=== PATIENT | male | born 1955 | race African-American/Black ===

== ENCOUNTER 2019-03-31 09:46 | Outpatient (CLI) | payer MEDICARE, SELFPAY ==
[2019-04-02 21:23] LABS: PSA, Free 0.06 ng/mL; PSA, Total 0.4 ng/mL (<=4.0)
== END 2019-03-31 09:47 | disposition home or self-care (01) ==
LOC: ANHLAB 09:47
PROVIDERS: Radiology Radiation Oncology; Visit Provider Internal Medicine Hematology & Oncology
DX: C61 Malignant neoplasm of prostate (principal)
CPT/HCPCS: 36415; 84153; 84154

== ENCOUNTER 2019-10-22 11:38 | Outpatient (CLI) | payer MEDICARE, SELFPAY ==
[2019-10-22 12:10] LABS: Alanine Aminotransferase 14 U/L (4-50); Albumin Level 4.3 g/dL (3.5-5.1); Alkaline Phosphatase 70 U/L (38-126); Anion Gap 10.3 mmol/L (7-16); Aspartate Amino Transferase 27 U/L (17-59); Bilirubin,Total 0.6 mg/dL (0.2-1.3); Blood Urea Nitrogen 16 mg/dL (9-20); Calcium 9.3 mg/dL (8.4-10.2); Carbon Dioxide 29 mmol/L (22-30); Chloride 102 mmol/L (98-107); Cholesterol 210 mg/dL (0-200); Estimated Glomerular Filt Rate > 60; Glucose 94 mg/dL (75-110); HDL Direct 50 mg/dL; Potassium 4.3 mmol/L (3.4-5.0); Sodium 137 mmol/L (137-145); Triglycerides 101 mg/dL (<150)
[2019-10-22 12:21] LABS: LDL Cholesterol Direct 124 mg/dL
[2019-10-22 13:36] LABS: Vitamin D 25 Hydroxy 38.3 ng/mL
== END 2019-10-22 11:39 | disposition home or self-care (01) ==
PROVIDERS: PCP Emergency Medicine; Visit Provider Emergency Medicine
DX: E78.2 Mixed hyperlipidemia (principal); E55.9 Vitamin D deficiency, unspecified
CPT/HCPCS: 36415; 80053; 80061; 82306

== ENCOUNTER 2020-04-19 09:36 | Outpatient (CLI) | payer MEDICARE, SELFPAY ==
[2020-04-19 10:41] LABS: Alanine Aminotransferase 18 U/L (4-50); Albumin Level 4.3 g/dL (3.5-5.1); Alkaline Phosphatase 63 U/L (38-126); Anion Gap 5 mmol/L (8-16); Aspartate Amino Transferase 31 U/L (17-59); Bilirubin,Total 0.5 mg/dL (0.2-1.3); Blood Urea Nitrogen 19 mg/dL (9-20); Calcium 9.4 mg/dL (8.4-10.2); Carbon Dioxide 28 mmol/L (22-30); Chloride 105 mmol/L (98-107); Cholesterol 242 mg/dL (0-200); Estimated Glomerular Filt Rate > 60; Glucose 90 mg/dL (75-110); HDL Direct 49 mg/dL; Potassium 4.4 mmol/L (3.4-5.0); Sodium 138 mmol/L (137-145); Triglycerides 102 mg/dL (<150)
[2020-04-19 10:51] LABS: LDL Cholesterol Direct 151 mg/dL
== END 2020-04-19 09:37 | disposition home or self-care (01) ==
PROVIDERS: PCP Emergency Medicine; Visit Provider Emergency Medicine
DX: E78.5 Hyperlipidemia, unspecified (principal)
CPT/HCPCS: 36415; 80053; 80061

== ENCOUNTER 2020-06-23 15:11 | Outpatient (CLI) | payer MEDICARE, SELFPAY ==
--- NOTE | ~2020-06-23 | US_ITS ---
EXAMINATION: US carotid duplex BI DATE: 06/23/2020 16:18 INDICATION: Left carotid artery stenosis and occlusion. TECHNIQUE: Grayscale, color Doppler, and pulsed Doppler images of the cervical carotid arteries were obtained. The degree of vessel stenosis is placed in one of the following categories: normal, <50%, 5 0-69%, >=70% but less than near-occlusion, near-occlusion, or total occlusion. Note that percent sten osis relative to normal distal artery lumen diameter is indirectly measured from velocity measurement s as described by Wally, et al. Radiology 2003; [id number]. COMPARISON: 01/04/2009 FINDINGS: RIGHT: The right common carotid artery (CCA) peak systolic velocity (PSV) is 95 cm/s with high resistance wa veform. The right internal carotid artery is occluded with no discernible vascular flow on color Dopp ler.. The external carotid artery (ECA) PSV is 53 cm/s. There is antegrade flow in the right vertebra l artery. LEFT: The left CCA PSV is 107 cm/s. The left ICA PSV is 59 cm/s. The left ICA EDV is 27 cm/s. The left ICA/ CCA PSV ratio is 0.6. Grayscale and color Doppler images yield an estimate of <50% diameter reduction from plaque in the ICA. The ECA PSV is 85 cm/s. There is antegrade flow in the left vertebral artery . IMPRESSION: 1. Complete occlusion of the right internal carotid artery. 2. <50% stenosis from minimal plaque in the left internal carotid artery. Reviewed, dictated and finalized at location B.
== END 2020-06-23 15:12 | disposition home or self-care (01) ==
LOC: ANHIMG 15:15
PROVIDERS: PCP Emergency Medicine; Visit Provider Emergency Medicine
DX: I65.23 Occlusion and stenosis of bilateral carotid arteries (principal)
CPT/HCPCS: 93880

== ENCOUNTER 2020-11-29 08:12 | Outpatient (CLI) | payer MEDICARE, SELFPAY ==
[2020-11-29 09:02] LABS: Alanine Aminotransferase 18 U/L (4-50); Albumin Level 4.1 g/dL (3.5-5.1); Alkaline Phosphatase 80 U/L (38-126); Anion Gap 9 mmol/L (8-16); Aspartate Amino Transferase 27 U/L (17-59); Bilirubin,Total 0.4 mg/dL (0.2-1.3); Blood Urea Nitrogen 12 mg/dL (9-20); Calcium 9.3 mg/dL (8.4-10.2); Carbon Dioxide 24 mmol/L (22-30); Chloride 106 mmol/L (98-107); Cholesterol 202 mg/dL (0-200); Estimated Glomerular Filt Rate > 60; Glucose 99 mg/dL (65-110); HDL Direct 49 mg/dL; Potassium 4.1 mmol/L (3.4-5.0); Sodium 139 mmol/L (137-145); Triglycerides 92 mg/dL (<150)
[2020-11-29 09:13] LABS: LDL Cholesterol Direct 113 mg/dL
== END 2020-11-29 08:13 | disposition home or self-care (01) ==
LOC: ANHLAB 08:16
PROVIDERS: PCP Emergency Medicine; Visit Provider Emergency Medicine
DX: I10 Essential (primary) hypertension (principal); E78.5 Hyperlipidemia, unspecified
CPT/HCPCS: 36415; 80053; 80061

== ENCOUNTER 2021-06-06 09:37 | Outpatient (CLI) | payer MEDICARE, SELFPAY ==
[2021-06-06 10:10] LABS: Alanine Aminotransferase 19 U/L (4-50); Albumin Level 4.4 g/dL (3.5-5.1); Alkaline Phosphatase 70 U/L (38-126); Anion Gap 6 mmol/L (8-16); Aspartate Amino Transferase 34 U/L (17-59); Bilirubin,Total 0.5 mg/dL (0.2-1.3); Blood Urea Nitrogen 16 mg/dL (9-20); Calcium 9.2 mg/dL (8.4-10.2); Carbon Dioxide 24 mmol/L (22-30); Chloride 106 mmol/L (98-107); Cholesterol 216 mg/dL (0-200); Estimated Glomerular Filt Rate > 60; Glucose 92 mg/dL (65-110); HDL Direct 43 mg/dL; Potassium 4.5 mmol/L (3.4-5.0); Sodium 136 mmol/L (137-145); Triglycerides 111 mg/dL (<150)
[2021-06-06 10:21] LABS: LDL Cholesterol Direct 120 mg/dL
== END 2021-06-06 09:38 | disposition home or self-care (01) ==
PROVIDERS: PCP Emergency Medicine; Visit Provider Emergency Medicine
DX: E78.5 Hyperlipidemia, unspecified (principal)
CPT/HCPCS: 36415; 80053; 80061

== ENCOUNTER 2021-12-24 15:01 | Emergency (ER) | payer MEDICARE, SELFPAY ==
--- NOTE | ~2021-12-24 | CT_ITS ---
EXAMINATION: CT lumbar spine wo con DATE: 12/24/2021 16:12 INDICATION: fall . TECHNIQUE: Computed tomography (CT) of the lumbar spine was performed without intravenous contrast. A utomated exposure control and iterative reconstruction technique were employed. The dose-length produ ct was 1029.90 mGy-cm. COMPARISON: 11/06/2017. FINDINGS: 5 nonrib-bearing lumbar-type vertebral bodies. Pedicles intact. 4 mm anterolisthesis at L5- S1, stable. Bilateral L5 pars defects. Moderate anterior wedge deformity at L2 involving the superior endplate, without definite extension to the posterior cortex. Multilevel degenerative disc disease. 7 mm soft tissue density posterior to the L5 vertebral body which may represent a disc extrusion. Dif fuse fatty density material in the epidural space. Multilevel facet arthropathy. Severe bilateral gio ral foraminal narrowing at L5-S1. No severe central canal narrowing IMPRESSION: Moderate anterior wedge compression deformity at L2, correlate with pain/tenderness. Presumed 7 [address] sc extrusion at L5. Bilateral L5 pars defects, with grade 1 anterolisthesis, severe degenerative disc disease, and severe bilateral neural foraminal narrowing at L5-S1. Epidural lipomatosis. Reviewed, dictated and finalized at location K. IMPRESSION: Moderate anterior wedge compression deformity at L2, correlate with pain/tender ness. Presumed 7 mm disc extrusion at L5. Bilateral L5 pars defects, with grade 1 anterolisthesis, severe degenerative disc disease, and severe bilateral neur al foraminal narrowing at L5-S1. Epidural lipomatosis.
[2021-12-24 15:03] VITALS: BP 142/76; PULSE 97; RESP 22; TEMP 36.4; O2SAT 97
[2021-12-24] MEDS: diazePAM INJ (*CRX) 10 MG/2 ML SYRINGE 5 MG IV PUSH (16:42)
--- NOTE | 2021-12-24 17:48 | ED.GENADULT ---
HPI - General Adult General Chief complaint: Back Pain/Injury Stated complaint: back pain Source: RN notes reviewed History of Present Illness HPI narrative: Patient presents emergency department from home via EMS for back pain. Patient has been having back pain for the past 2 weeks since he fell states he is working on a lawnmower when he slipped and fell landing back on his back he states since that time he had pain in the bilateral lower back states his back has been spasming and locking up on him since that time states he has been taking ibuprofen at home with last ibuprofen approximately 2 hours ago he denies any fevers or chills abdominal pain numbness or weakness of the extremities bowel or bladder incontinence or any other symptoms of concern he did not strike his head and had no loss of consciousness Related Data Home Medications Medication Instructions Recorded Confirmed aspirin 81 mg tablet,delayed 81 mg PO DAILY 04/23/19 06/15/21 release magnesium oxide 400 mg PO DAILY 12/17/19 06/15/21 Allergies Allergy/AdvReac Type Severity Reaction Status Date / Time No Known Allergies Allergy Verified 06/15/21 15:04 Review of Systems Review of Systems: Gen.: Denies fevers or chills ENT: Denies congestion Respiratory: Denies shortness of breath or cough CV: Denies chest pain GI: Denies abdominal pain nausea, emesis or diarrhea denies incontinence Musculoskeletal: see HPI Neuro: Denies numbness, tingling, weakness or focal weakness Skin: Denies rash Except as documented, all other systems reviewed and negative [facility] Past Medical History Medical History (Updated 12/24/21 @ 18:11 by Jeremy Ch DO) H/O: CVA (cerebrovascular accident) HTN (hypertension) Hyperlipidemia Prostate cancer Family History Family History Father Family history of cardiovascular disease Acute myocardial infarction Family history of emphysema Sibling Acute myocardial infarction Mother Family history of lung cancer Social History Social History Smoking status: Former smoker Alcohol intake: never Exam Narrative: APPEARANCE: No acute distress, nontoxic, resting in bed EYES: EOMI HEENT: Normocephalic, atraumatic, OMM RESPIRATORY: No respiratory distress Clear to auscultation bilaterally with no rhonchi wheezing or rales. CARDIOVASCULAR: Regular rate and rhythm without murmurs rubs or gallops. ABDOMINAL: Soft, nontender, nondistended, no rebound or guarding Back: No midline thoracic or lumbar tenderness palpation tender palpation bilateral paravertebral muscles L2-5 MUSCULOSKELETAl: Moves all extremities. No clubbing, cyanosis or edema. Muscle strength 5 out of 5 in the bilateral lower extremities NEURO: Awake and alert. Following commands, speech normal, no focal deficits SKIN:: Warm, dry. No rashes lesions or abrasions PSYCHIATRIC: Normal affect/mood, Course Course Emergency Course: Discussed with Dr. Allen for neurosurgery agrees with plan for discharge and follow-up as an outpatient Discussed with patient results of workup and diagnosis. Discussed need for follow-up with primary care, proper use of medication, and reasons to return to the emergency department. Patient understands and agrees to current treatment plan Vital Signs Vital signs: Vital Signs Temperature 97.6 F 12/24/21 15:03 Pulse Rate 97 12/24/21 15:03 Respiratory Rate 22 H 12/24/21 15:03 Blood Pressure 142/76 H 12/24/21 15:03 Pulse Oximetry 97 12/24/21 15:03 Oxygen Delivery Room Air 12/24/21 15:03 Temperature 97.6 F 12/24/21 15:03 Pulse Rate 97 12/24/21 15:03 Respiratory Rate 22 H 12/24/21 15:03 Blood Pressure 142/76 H 12/24/21 15:03 Pulse Oximetry 97 12/24/21 15:03 Oxygen Delivery Room Air 12/24/21 15:03 Medical Decision Making MDM Narrative Medical
== END 2021-12-24 18:54 | disposition home or self-care (01) ==
PROVIDERS: Emergency Provider Emergency Medicine; PCP Emergency Medicine
DX: S32.020A Wedge compression fracture of second lumbar vertebra, initial encounter for closed fracture (principal); I10 Essential (primary) hypertension; E78.5 Hyperlipidemia, unspecified; Z85.46 Personal history of malignant neoplasm of prostate; Z86.73 Personal history of transient ischemic attack (TIA), and cerebral infarction without residual deficits; Z87.891 Personal history of nicotine dependence; W01.0XXA Fall on same level from slipping, tripping and stumbling without subsequent striking against object, initial encounter
CPT/HCPCS: 72131; 96365; 96375; 99284; J0131; J3360

== ENCOUNTER 2021-12-26 11:44 | Outpatient (CLI) | payer MEDICARE, SELFPAY ==
[2021-12-26 12:15] LABS: Alanine Aminotransferase 24 U/L (6-50); Albumin Level 4.4 g/dL (3.5-5.1); Alkaline Phosphatase 106 U/L (38-126); Anion Gap 9 mmol/L (8-16); Aspartate Amino Transferase 45 U/L (17-59); Bilirubin,Total 0.7 mg/dL (0.2-1.3); Blood Urea Nitrogen 17 mg/dL (9-20); Calcium 9.8 mg/dL (8.4-10.2); Carbon Dioxide 24 mmol/L (22-30); Chloride 104 mmol/L (98-107); Cholesterol 209 mg/dL (0-200); Estimated Glomerular Filt Rate > 60; Glucose 90 mg/dL (65-110); HDL Direct 48 mg/dL; Potassium 4.1 mmol/L (3.4-5.0); Sodium 137 mmol/L (137-145); Triglycerides 84 mg/dL (<150)
[2021-12-26 12:26] LABS: LDL Cholesterol Direct 119 mg/dL
== END 2021-12-26 11:45 | disposition home or self-care (01) ==
PROVIDERS: PCP Emergency Medicine; Visit Provider Emergency Medicine
DX: E78.5 Hyperlipidemia, unspecified (principal); I10 Essential (primary) hypertension
CPT/HCPCS: 36415; 80053; 80061

== ENCOUNTER 2021-12-27 06:30 | Observation (INO) | payer MEDICARE, SELFPAY ==
[2021-12-27] VITALS (16 sets, daily range): BP systolic 117–155; BP diastolic 64–92; PULSE 69–95; RESP 15–20; TEMP 35.6–36.7; O2SAT 95–100; BMI 28.6
--- NOTE | ~2021-12-27 | CT_ITS ---
EXAMINATION: CT cervical spine wo con DATE: 12/27/2021 08:29 INDICATION: Neck injury. TECHNIQUE: Computed tomography (CT) of the cervical spine was performed without intravenous contrast. Automated exposure control and iterative reconstruction technique were employed. The dose-length pro duct was 436.90 mGy-cm. COMPARISON: None FINDINGS: There is mild scarring at the lung apices. There is kyphosis of cervical spine. There is 2 mm anterolisthesis of C7 on T1. There is 18 degrees dextroscoliosis of cervical spine. Vertebral body heights are normal. There is moderately decreased disc height at C3-C4 and C4-C5, severely decreased disc height at C5-C6 and C6-C7, and mildly decreased disc height at C7-T1. The following disc levels are specifically discussed: C2-C3: There is mild bilateral uncovertebral joint osteoarthritis. There is severe bilateral facet efren int osteoarthritis. There is mild bilateral neural foraminal stenosis. There is mild central canal st enosis. C3-C4: There is mild right and severe left uncovertebral joint osteoarthritis. There is moderate righ t and severe left facet joint osteoarthritis. There is mild right and moderate left neural foraminal stenosis. There is mild central canal stenosis. C4-C5: There is severe bilateral uncovertebral joint osteoarthritis. There is mild right and severe l eft facet joint osteoarthritis. There is mild right and moderate left neural foraminal stenosis. Ther e is mild central canal stenosis. C5-C6: There is severe right and moderate left uncovertebral joint osteoarthritis. There is mild righ t and severe left facet joint osteoarthritis. There is mild bilateral neural foraminal stenosis. Ther e is mild central canal stenosis. C6-C7: There is severe bilateral uncovertebral joint osteoarthritis. There is severe bilateral facet joint osteoarthritis. There is mild bilateral neural foraminal stenosis. There is mild central canal stenosis. C7-T1: There is no uncovertebral joint osteoarthritis. There is severe bilateral facet joint osteoart hritis. There is mild bilateral neural foraminal stenosis. There is no central canal stenosis. IMPRESSION: 1. No fracture. 2. Severe cervical spondylosis. 3. Cervical dextroscoliosis. Reviewed, dictated and finalized at location A.
--- NOTE | ~2021-12-27 | CT_ITS ---
EXAMINATION: CT brain wo con DATE: 12/27/2021 08:29 INDICATION: Multiple falls. Left arm weakness. TECHNIQUE: Computed tomography (CT) of the head was performed without intravenous contrast. Sagittal and coronal reconstructions were performed. The mA was adjusted according to patient size. Iterative reconstruction technique was employed. The dose-length product was 605.33 mGy-cm. COMPARISON: head CT dated 11/05/2017 FINDINGS: No fracture. Unchanged large region of encephalomalacia involving the right middle cerebral artery va scular lesion of the right frontal, parietal and temporal lobes and portions of the right basal gangl ia and thalamus consistent with chronic infarct. No acute intracranial hemorrhage, acute infarction o r abnormal extra axial fluid collection. There is mild scattered white matter hypoattenuation consist ent with chronic small vessel ischemic disease. Mild ex vacuo dilation of the right lateral ventricl e. Ventricles are otherwise normal symmetric with normal variant cavum septum pellucidum et vergae. N o mass/mass effect. The orbits, paranasal sinuses and mastoid air cells are normal. Intracranial calc ified cerebral atherosclerosis is noted. IMPRESSION: 1. No acute intracranial process. 2. Chronic large infarct involving the right middle cerebral artery vascular distribution. 3. Additional mild scattered white matter hypoattenuation consistent with chronic small vessel ischem ic disease. Reviewed, dictated and finalized at location B. IMPRESSION: 1. No acute intracranial process. 2. Chronic large infarct involving the right middle cerebral artery vascular di stribution. 3. Additional mild scattered white matter hypoattenuation consistent with chron ic small vessel ischemic disease.
--- NOTE | ~2021-12-27 | CT_ITS ---
EXAMINATION: CT thoracic lumbar wo con DATE: 12/27/2021 08:30 INDICATION: Mid to low back pain post multiple falls. Recent compression fracture. TECHNIQUE: Computed tomography (CT) of the thoracic and lumbar spine was performed without intravenou s contrast. CT reconstructions of the thoracic and lumbar spine were obtained in the axial, coronal, and sagittal planes. Automated exposure control and iterative reconstruction technique were employed. The dose-length product was 2011.48 mGy-cm. COMPARISON: 12/24/2021 FINDINGS: Thoracic spine: Minimal upper thoracic levocurvature. Sagittal alignment is normal. Thoracic vertebral body heights a re normal. Mild disc height loss at multiple levels throughout the thoracic spine. No central canal s tenosis. Severe facet osteoarthritis on the right at C7-T1 through T3-T4 and on the left at C7-T1 thr ough T2-T3. Mild to moderate facet osteoarthritis throughout the more caudal thoracic spine. There is mild neural foraminal stenosis at multiple levels on both the left and right most prominent in the u pper thoracic spine. Paravertebral soft tissues are unremarkable. Respiratory motion and mild depende nt predominant atelectasis in the bilateral lungs. Lumbar spine: Chronic L5 spondylolysis with bilateral pars intra-articular is defects and unchanged 4 mm anterolist hesis L5 on S1. Alignment is otherwise normal. No interval change in a relatively recent-appearing L2 compression fracture with one third central vertebral body height loss. Remaining vertebral body hei ghts are normal. There is severe blunting of the central L1-L2 disc space. Mild disc height loss at L 3-L4 and L4-L5 and moderate disc height loss at L5-S1. Likely disc extrusion at L1-L2 and disc bulges at L2-L3 through L5-S1 which along with epidural lipomatosis in the mid to lower lumbar spine contri buting to multilevel mild central canal stenosis. Multilevel bilateral mild to moderate lumbar facet osteoarthritis most prominent at L1-L2. Severe right-sided and moderate to severe left-sided neural f oraminal stenosis at L5-S1. Moderate left-sided and mild to moderate right-sided neural foraminal jesus nosis at L4-L5, bilaterally at L3-L4 and on the right at L1-L2 and mild at the remaining lumbar neura l foramina. Calcified appendicoliths within the otherwise normal appendix with no periappendiceal inf lammatory stranding to suggest acute appendicitis. Surgical clip in the pelvis. IMPRESSION: 1. No interval change in a relatively recent-appearing L2 compression fracture with one third central vertebral body height loss. No acute osseous or LT. 2. Mild to moderate thoracic and lumbar spondylosis. 3. Chronic L5 spondylolysis with bilateral pars interarticularis defects and 4 mm anterolisthesis on S1. Reviewed, dictated and finalized at location B.
--- NOTE | 2021-12-27 06:35 | ECG_ITS ---
Measurements Intervals [place] Rate: 71 P: 54 SD: 141 QRS: 46 QRSD: 89 T: 36 QT: 368 QTc: 401 Interpretive Statements SINUS RHYTHM ARTIFACT IS PRESENT NO PREVIOUS ECG AVAILABLE FOR COMPARISON Electronically Signed On 12-29-2021 14:14:07 CDT by Edwin Palencia M.D.
--- NOTE | 2021-12-27 07:07 | ED.FALL ---
HPI - Fall General Chief Complaint: Fall Stated Complaint: GLF last noc, lower back Time Seen by Provider: 12/27/21 07:02 History of Present Illness HPI Narrative: Patient is a 66-year-old male with a history of strokes, hypertension, hyperlipidemia, recent lumbar compression fracture presenting after multiple falls. Patient had several falls approximately 4 days ago and was seen at this facility. He was diagnosed with a compression fracture and was able to go home with outpatient neurosurgical follow-up. Unfortunately, since that time he has had numerous falls. Patient sister reports that he had several falls yesterday during the day. She and her were able to help him up but then the patient had a fall around 7 PM and was unable to get to the phone until 4 AM to call her. Patient states that this last fall was due to slipping on water in the bathroom floor. Currently, the patient states that his back pain is 7 out of 10. She denies focal weakness or numbness. Denies saddle anesthesia or bladder or bowel incontinence. He denies striking his head or losing consciousness. No headache, vision changes, chest pain, lightheadedness, shortness of breath, abdominal pain, nausea or vomiting, diarrhea, leg swelling. Related Data Home Medications Medication Instructions Recorded Confirmed aspirin 81 mg tablet,delayed 81 mg PO DAILY 04/23/19 12/27/21 release magnesium oxide 400 mg PO DAILY 12/17/19 12/27/21 rosuvastatin 10 mg tablet 10 mg PO HS 12/27/21 12/27/21 travoprost 0.004 % eye drops 1 drp EACH EYE HS 12/27/21 12/27/21 Allergies Allergy/AdvReac Type Severity Reaction Status Date / Time No Known Allergies Allergy Verified 12/27/21 12:43 Review of Systems Review of Systems: All systems reviewed & are unremarkable except as noted in HPI and below PMFSH Past Medical History Medical History (Updated 12/28/21 @ 18:54 by Francesca Madera MD) Anxiety and depression Glaucoma H/O: CVA (cerebrovascular accident) HTN (hypertension) Hyperlipidemia Prostate cancer With radiation treatment Seizure disorder Surgical History Surgical History (Updated 12/27/21 @ 14:57 by Louisa Rahman NP) History of hand surgery History of repair of rotator cuff History of ventral hernia repair Family History Family History Father Family history of cardiovascular disease Acute myocardial infarction Family history of emphysema Sibling Acute myocardial infarction Mother Family history of lung cancer Social History Social History (Updated 12/27/21 @ 14:59 by Louisa Rahman NP) Social History: The patient had been in the but retired from highway construction. He is single and does not have any children. His 4 sisters are his power senior trial attorney. He denies any alcohol marijuana illicit drugs. Code status full code. Smoking status: Former smoker Alcohol intake: current Drinks per week: 6 Substance use: never Occupation/Education: retired Spiritual care concerns: No Exam Narrative: GENERAL: Well-appearing, well-nourished, and in no acute distress. HEAD: Normocephalic, atraumatic. EYES: PERRLA and EOMI. ENT: Nares clear, no rhinorrhea or epistaxis. Mucous membranes moist. NECK: Supple. CHEST: Clear to auscultation. No respiratory distress. HEART: Regular rate and rhythm. No murmur heard. Normal peripheral pulses. ABDOMEN: Soft, nontender, nondistended, normal active bowel sounds. EXTREMITIES: Normal range of motion. No edema. SKIN: Warm, dry, no rash. NEURO: No focal deficits. Strength 4+/5 bilateral lower extremities. Alert and oriented x3. PSYCH: Normal mood and affect. Course Course Emergency Course: Patient is a 66-year-old male presenting after multiple falls. Vitals within normal limits. Patient is nontoxic and in no acute distress. Exam is remarkable for the above. Concern for nu
[2021-12-27 07:42] LABS: Add Urine Microscopic? YES; Appearance Urine Clear (Clear); Bilirubin Urine Negative (Negative); Blood Urine 2+ (Negative); Color Urine Straw (Yellow); Glucose Urine UA Negative (Negative); Ketones Urine Negative (Negative); Leukocyte Esterase Ur Negative LEU/UL (Negative); Mucus Urine Rare /lpf; Nitrate Urine Negative (Negative); Protein Urine 2+ mg/dL (Negative); RBC Urine 0-2 /hpf (0-2); Specific Grav Ur 1.014 (1.001-1.035); Squamous Epithelial Cell Urine Rare /hpf (Few); Urobilinogen Urine Negative mg/dL (<2.0); WBC Urine 0-3 /hpf
[2021-12-27 07:46] LABS: Basophils Percent Auto 0.1 % (0.2-1.2); Eosinophils Absolute Auto 0.1 K/mm3 (0-0.3); Eosinophils Percent Auto 1.3 % (0-4.4); Hematocrit 38.6 % (42.0-52.0); Hemoglobin 12.6 g/dL (14.0-18.0); Immature Granulocyte Absolute 0.04 K/mm3 (0.00-0.031); Immature Granulocyte Percent A 0.6 % (0-0.5); Lymphocytes Absolute Auto 1.69 K/mm3 (0.9-3.2); Lymphocytes Percent Auto 25.2 % (18.3-44.2); Mean Corpuscular HGB Conc 32.6 g/dl (32-36); Mean Corpuscular Hemoglobin 30.8 pg (26-34); Mean Corpuscular Volume 94.4 fl (80-100); Mean Platelet Volume 9.7 fl (7.4-10.4); Monocytes Absolute Auto 0.8 K/mm3 (0.1-0.6); Monocytes Percent Auto 12.1 % (2.6-8.5); Neutrophils Absolute Auto 4.1 K/mm3 (1.3-6.7); Neutrophils Percent Auto 60.7 % (45.5-73.1); Platelet Count Result 215 k/mm3 (150-375); Red Blood Count 4.09 M/mm3 (4.6-6.20); White Blood Count 6.7 K/mm3 (4.5-10.0)
[2021-12-27] MEDS: KETOROLAC 15 MG/ML VIAL (*BKC) IV PUSH (07:50)
[2021-12-27] MEDS: MORPHINE SULFATE (*CRX) 4 MG/ML INJ IV PUSH (07:52)
[2021-12-27 07:53] LABS: Alanine Aminotransferase 24 U/L (6-50); Albumin Level 4.3 g/dL (3.5-5.1); Alkaline Phosphatase 95 U/L (38-126); Anion Gap 10 mmol/L (8-16); Aspartate Amino Transferase 45 U/L (17-59); Bilirubin,Total 0.5 mg/dL (0.2-1.3); Blood Urea Nitrogen 21 mg/dL (9-20); Calcium 9.6 mg/dL (8.4-10.2); Carbon Dioxide 25 mmol/L (22-30); Chloride 107 mmol/L (98-107); Creatine Kinase 851 U/L (55-170); Estimated CRCL calculation 47 ml/min; Estimated Glomerular Filt Rate > 60; Glucose 101 mg/dL (65-110); Sodium 142 mmol/L (137-145)
[2021-12-27] MEDS: SODIUM CHLORIDE 0.9% IV 1,000 ML 999 ML IV CONT (09:22)
[2021-12-27 11:24] LABS: SARS-CoV-2 RNA PCR Negative
--- NOTE | 2021-12-27 12:10 | ADMGEN ---
This patient, Roman La, was admitted to [facility] Surg Room 316-01. Patient/family oriented to hospital policies and general routines including ID bracelet, bed and alarms, visiting hours, pain management, procedures, bathroom and other care routines, personal items, smoking policy, room service/diet, and visiting hours. Information on how to activate the Rapid Response Team has been discussed. Patient/Family are encouraged to report perceived risks to care and to ask questions if they do not understand what they are told or what they should do.
[2021-12-27] MEDS: SODIUM CHLORIDE 0.9% IV 1,000 ML 125 ML IV CONT ×2 (12:18→20:12)
--- NOTE | 2021-12-27 14:43 | PM.IMHP ---
H&P: HPI History of Present Illness Date/Time: 12/27/21 14:43 Chief Complaint: Fall Narrative: This is a 66-year-old male patient who has been diagnosed with compression fracture and was able to go home and follow-up with outpatient neuro surgery. Unfortunately the patient continues to keep falling. The patient's sister reports that the patient fallen several times yesterday during the day. She and her were able to help him on up but then the patient fell around 7 p.m. and was unable to get the phone until 4:00 a.m.. The patient laid on the floor for that time. He denies any focal weakness or numbness. He denies any bowel or bladder incontinence. He denies striking his head or losing consciousness. The patient states that by lifting his head and sitting up and elicits pain in makes it worse. His no headache or visual changes. No lightheadedness no fever no chills no shortness of breath no abdominal pain no nausea vomiting diarrhea or leg swelling. His H&H is 12.6 and 38.6. Creatinine is elevated to 1.4 and BUN 21. Last known labs were normal. Patient was found to be negative for COVID. Thoracic lumbar spine CT was read as the following. 1.No interval change in a relatively recent-appearing L2 compression fracture with one third central vertebral body height loss. No acute osseous or LT. 2. Mild to moderate thoracic and lumbar spondylosis. 3. Chronic L5 spondylolysis with bilateral pars interarticularis defects and 4 mm anterolisthesis on S1. Cervical spine CT was read as no fracture. Severe cervical spondylosis. Cervical dextroscoliosis. The patient was given IV fluids, Toradol, and morphine in the emergency room. The patient is being admitted to observation status on the date of service of 12/27/2021. Review of Systems Review of Systems: See HPI All systems reviewed & are unremarkable except as noted in HPI and below Constitutional: Constitutional: Reports as per HPI and Reports no additional constitutional complaints Eyes: Eyes: Reports as per HPI and Reports no additional eye complaints ENT: Reports system reviewed and no additional complaints, except as documented and Reports Normal hearing present Cardiovascular: Cardiovascular: Reports no additional cardiovascular complaints Respiratory: Respiratory: Reports no additional respiratory complaints and Reports no additional respiratory complaints Gastrointestinal: Gastrointestinal: Reports as per HPI and Reports no additional gastrointestinal complaints Musculoskeletal: Musculoskeletal: Reports no additional musculoskeletal complaints Integumentary/Breasts: Skin/Breast: Reports system reviewed and no additional complaints, except as docu and Reports as per HPI Neurologic: Reports system reviewed and no additional complaints, except as documented, Reports as per HPI and Reports Normal hearing present Psychiatric: Psychiatric: Reports no additional psychiatric complaints and Reports as per HPI Endocrine: Endocrine: Reports no additional endocrine complaints Hematologic/Lymphatic: Hematologic/Lymphatic: Reports no additional hematologic/lymphatic complaints Allergic/Immunologic: Allergic/Immunologic: Reports no additional allergic/immunologic complaints [facility] Past Medical History Medical History (Updated 12/27/21 @ 15:08 by Louisa Rahman NP) Anxiety and depression Glaucoma H/O: CVA (cerebrovascular accident) HTN (hypertension) Hyperlipidemia Prostate cancer With radiation treatment Seizure disorder Surgical History Surgical History (Updated 12/27/21 @ 14:57 by Louisa Rahman NP) History of hand surgery History of repair of rotator cuff History of ventral hernia repair Family History Family History Father Family history of cardiovascular disease Acute myocardial infarction Family history of emphysema Sibling Acute myocardial infarction Mother
[2021-12-27] MEDS: levETIRAcetam 500 MG TABLET PO (18:01)
[2021-12-27] MEDS: ROSUVASTATIN 10 MG TABLET PO (20:07)
[2021-12-27] MEDS: LATANOPROST 0.005% OP SOLN 2.5 ML BTL 1 DROP EACH EYE (20:08)
[2021-12-28] MEDS: SODIUM CHLORIDE 0.9% IV 1,000 ML 125 ML IV CONT ×3 (04:51→21:52)
[2021-12-28 06:00] VITALS: BP 105/59; PULSE 82; RESP 16; TEMP 36.7; O2SAT 99
[2021-12-28 06:24] LABS: Basophils Percent Auto 0.2 % (0.2-1.2); Eosinophils Absolute Auto 0.1 K/mm3 (0-0.3); Eosinophils Percent Auto 1.9 % (0-4.4); Hematocrit 34.3 % (42.0-52.0); Hemoglobin 11.1 g/dL (14.0-18.0); Immature Granulocyte Absolute 0.03 K/mm3 (0.00-0.031); Immature Granulocyte Percent A 0.5 % (0-0.5); Lymphocytes Absolute Auto 2.43 K/mm3 (0.9-3.2); Lymphocytes Percent Auto 41.5 % (18.3-44.2); Mean Corpuscular HGB Conc 32.4 g/dl (32-36); Mean Corpuscular Hemoglobin 31.1 pg (26-34); Mean Corpuscular Volume 96.1 fl (80-100); Mean Platelet Volume 9.7 fl (7.4-10.4); Monocytes Absolute Auto 0.7 K/mm3 (0.1-0.6); Monocytes Percent Auto 11.8 % (2.6-8.5); Neutrophils Absolute Auto 2.6 K/mm3 (1.3-6.7); Neutrophils Percent Auto 44.1 % (45.5-73.1); Platelet Count Result 203 k/mm3 (150-375); Red Blood Count 3.57 M/mm3 (4.6-6.20); Red Cell Distribution Width 14.1 % (11.5-14.5); White Blood Count 5.9 K/mm3 (4.5-10.0)
[2021-12-28 06:53] LABS: Alanine Aminotransferase 20 U/L (6-50); Albumin Level 3.6 g/dL (3.5-5.1); Alkaline Phosphatase 76 U/L (38-126); Anion Gap 12 mmol/L (8-16); Aspartate Amino Transferase 30 U/L (17-59); Bilirubin,Total 0.5 mg/dL (0.2-1.3); Blood Urea Nitrogen 14 mg/dL (9-20); Calcium 8.7 mg/dL (8.4-10.2); Carbon Dioxide 23 mmol/L (22-30); Chloride 107 mmol/L (98-107); Creatine Kinase 439 U/L (55-170); Estimated CRCL calculation 50 ml/min; Estimated Glomerular Filt Rate > 60; Glucose 77 mg/dL (65-110); Magnesium 2.1 mg/dL (1.6-2.3); Potassium 3.5 mmol/L (3.4-5.0); Sodium 142 mmol/L (137-145)
[2021-12-28] MEDS: levETIRAcetam 500 MG TABLET PO ×2 (08:25→17:48)
[2021-12-28] MEDS: CITALOPRAM HYDROBROMIDE 20 MG TABLET PO (08:25)
[2021-12-28] MEDS: ASPIRIN 81 MG ENTERIC TABLET PO (08:25)
[2021-12-28] MEDS: CLOPIDOGREL BISULFATE 75 MG TABLET PO (08:26)
[2021-12-28] MEDS: MAGNESIUM OXIDE 400 MG TABLET PO (08:26)
--- NOTE | 2021-12-28 09:03 | PCPTNOTE ---
Attempted PT evaluation, however, pt currently does not have a brace and waiting for neuro consult. Will Follow.
--- NOTE | 2021-12-28 09:07 | PCOTNOTE ---
Attempted OT evaluation, however, pt currently does not have a brace and waiting for neuro consult. Will Follow.
[2021-12-28 14:00] VITALS: BP 129/71; PULSE 80; RESP 18; TEMP 36.1; O2SAT 96
--- NOTE | 2021-12-28 17:32 | PM.IMPN ---
Progress Note: A&P Assessment and Plan (1) Falls: Code(s): W19.XXXA - Unspecified fall, initial encounter Status: Acute Assessment and Plan: Patient has had several falls at home and is admitted again here for fall. He was down on the ground for many hours. Total CK was 851 but on repeat it is improved with the IV fluids. CT of the brain shows old infarct but no acute findings. Thoracolumbar spine CT shows no interval change in the recent L2 compression fracture. PT and OT has been ordered. Patient is uninterested in going to rehab. braces in place. Plan is for patient to be discharged once he is cleared by therapy. (2) Lumbar compression fracture: Code(s): S32.000A - Wedge compression fracture of unspecified lumbar vertebra, initial encounter for closed fracture Status: Acute Assessment and Plan: CT scan here showing no interval change in the recent L2 compression fracture. Continue TLSO brace. neuro surgery has been consulted. Appreciate their input. Try to minimize narcotics since this may be contributing to his falls. (3) Anxiety and depression: Code(s): F41.9 - Anxiety disorder, unspecified; F32.A - Depression, unspecified Status: Acute Assessment and Plan: Normal mood. Continue citalopram. He has not required the Valium so we will hold this since this may be contributing to his falls. (4) Seizure disorder: Code(s): G40.909 - Epilepsy, unspecified, not intractable, without status epilepticus Status: Acute Assessment and Plan: Patient has had 1 seizure after his CVA in 2007. His falls could be related to on recognized seizures but no metabolic acidosis to suggest feet seizure. Continue with Keppra. (5) Hyperlipidemia: Code(s): E78.5 - Hyperlipidemia, unspecified Status: Acute Assessment and Plan: LFTs normal. TCK noted but felt related to his being down for prolonged period. Will hold Crestor for a few days. (6) H/O: CVA (cerebrovascular accident): Code(s): Z86.73 - Personal history of transient ischemic attack (TIA), and cerebral infarction without residual deficits Status: Acute Assessment and Plan: CT brain showing old large CVA involving the right MCA territory. Continue with aspirin and Plavix. Continue PT/OT. He is high risk for recurrent falls. Plan DVT prophylaxis: SCDs code status: Full diet: Heart healthy Subjective Date/time seen: 12/28/21 17:32 Interval history: 66yo male with hx of CVA, seizure disorder and HTN here for a fall. Assuming care. Chart reviewed. Patient having only minimal pain at this time in his back. The brace appears to be helping him. Does have a left hemiparesis with numbness but denies any joint pain. Exam Narrative: AF 97.0 129/71 80 18 96% ra Gen - NARD lying almost flat in bed Chest - CTA anteriorly and in flanks bilaterally, nml RR CV - RRR S1/S2 Abd - Soft, NT/ND, Positive BS Back - brace in pace Ext - No pedal edema Neuro - Alert and oriented. Left hemiparesis Psych - Nml mood and affect Skin - Warm and dry Objective Data Vital Signs Vital Signs: Vital Signs - 24 hr 12/27/21 21:54 12/27/21 20:00 12/28/21 06:00 Temperature 98.0 F 98.0 F Pulse Rate 95 95 82 Respiratory Rate 16 16 16 Blood Pressure 117/76 105/59 L Pulse Oximetry 96 96 99 Oxygen Delivery Room Air 12/28/21 08:00 12/28/21 14:00 Temperature 97 F L Pulse Rate 80 Respiratory Rate 18 Blood Pressure 129/71 Pulse Oximetry 96 Oxygen Delivery Room Air Intake/Output Intake/Output: Intake & Output 12/25/21 12/26/21 12/27/21 12/28/21 23:59 23:59 23:59 23:59 Intake Total 2592 1720 Output Total 225 550 Balance 2367 1170 Meds/Results Medications: Active Medications Generic Name Dose Route Start Last Admin Trade Name Freq PRN Reason Stop Dose Admin Hydrocodone Bitart/Acetaminophen 1 tab 12/27/21 15:
[2021-12-28] MEDS: LATANOPROST 0.005% OP SOLN 2.5 ML BTL 1 DROP EACH EYE (21:52)
[2021-12-28 22:00] VITALS: BP 138/78; PULSE 71; RESP 19; TEMP 36.4; O2SAT 96
[2021-12-29 06:00] VITALS: BP 137/76; PULSE 71; RESP 20; TEMP 35.8; O2SAT 99
[2021-12-29 07:23] LABS: Anion Gap 6 mmol/L (8-16); Blood Urea Nitrogen 12 mg/dL (9-20); Calcium 9.1 mg/dL (8.4-10.2); Carbon Dioxide 25 mmol/L (22-30); Chloride 108 mmol/L (98-107); Creatine Kinase 239 U/L (55-170); Estimated CRCL calculation 54 ml/min; Estimated Glomerular Filt Rate > 60; Glucose 90 mg/dL (65-110); Potassium 3.8 mmol/L (3.4-5.0); Sodium 139 mmol/L (137-145)
[2021-12-29] MEDS: MAGNESIUM OXIDE 400 MG TABLET PO (08:21)
[2021-12-29] MEDS: ASPIRIN 81 MG ENTERIC TABLET PO (08:21)
[2021-12-29] MEDS: CLOPIDOGREL BISULFATE 75 MG TABLET PO (08:21)
[2021-12-29] MEDS: CITALOPRAM HYDROBROMIDE 20 MG TABLET PO (08:21)
[2021-12-29] MEDS: levETIRAcetam 500 MG TABLET PO ×2 (08:21→17:25)
--- NOTE | 2021-12-29 11:12 | PCPTNOTE ---
Pt has not been seen by neuro surgeon at this time. TLSO brace present. Will follow.
[2021-12-29] MEDS: HYDROcodone/acetaminophen (*CRX) 5-325 MG TABLET 1 TAB PO (13:40)
[2021-12-29 14:00] VITALS: BP 126/65; PULSE 64; RESP 18; TEMP 36.7; O2SAT 97
--- NOTE | 2021-12-29 16:26 | WPDNEUROSGCN ---
Assessment and Plan Assessment and plan (1) Lumbar compression fracture: Code(s): S32.000A - Wedge compression fracture of unspecified lumbar vertebra, initial encounter for closed fracture Status: Acute Assessment and Plan: Assessment: The patient presents with severe low back pain likely secondary to his a recent L2 compression fracture. He is having multiple falls. Has been in bed for 2 days without ambulating. Plan Recommendations: He now has a lumbosacral corset which appears to be Um satisfactory. I recommended Valadez in his activity as tolerated. Physical therapy and occupational therapy will be useful. He should wear his brace not Velasquez when out of bed. He should have neuro checks with vital signs. I should be notified immediately with any deterioration in his neurologic status. Should have follow-up with me in approximately 6 weeks with repeat plain films of the lumbar spine. I left my business card and asked him to contact us for his follow-up appointment. If his activity is not advanced sufficiently with bracing then vertebroplasty or kyphoplasty could be considered. I talked to the patient about these treatments. We discussed the procedure in the recovery. Discussed risks such as but not limited to infection, bleeding, injury to the nerves, weakness, numbness, paralysis, no improvement in his symptoms. He lives alone and he may need placement In a rehab facility or care home facilityduring the acute phase of his flare up. 50 minutes were spent in the activities documented in this note. Greater than 50% of time was spent [id number] with the patient. Review of Systems Review of Systems: He his review of systems is otherwise Unremarkable. He denies any recent problems with fevers, chills, sweats, chest pain, shortness of breath, abdominal pain, nausea, vomiting, diarrhea, blood in the stool or urine. [facility] Past Medical History Medical History (Updated 12/28/21 @ 18:54 by Francesca Madera MD) Anxiety and depression Glaucoma H/O: CVA (cerebrovascular accident) HTN (hypertension) Hyperlipidemia Prostate cancer With radiation treatment Seizure disorder Surgical History Surgical History (Updated 12/27/21 @ 14:57 by Louisa Rahman NP) History of hand surgery History of repair of rotator cuff History of ventral hernia repair Family History Family History Father Family history of cardiovascular disease Acute myocardial infarction Family history of emphysema Sibling Acute myocardial infarction Mother Family history of lung cancer Social History Social History (Updated 12/27/21 @ 14:59 by Louisa Rahman NP) Social History: The patient had been in the but retired from highway construction. He is single and does not have any children. His 4 sisters are his power patent prosecution attorney. He denies any alcohol marijuana illicit drugs. Code status full code. Smoking status: Former smoker Alcohol intake: current Drinks per week: 6 Substance use: never Occupation/Education: retired Spiritual care concerns: No Meds Home Medications and Allergies Home Medications Medication Instructions Recorded Confirmed Type aspirin 81 mg tablet,delayed 81 mg PO DAILY 04/23/19 12/27/21 History release magnesium oxide 400 mg PO DAILY 12/17/19 12/27/21 History clopidogrel 75 mg tablet (Plavix) 75 mg PO DAILY #90 tabs 04/11/21 12/27/21 Rx citalopram 20 mg tablet 20 mg PO DAILY #90 tabs 07/18/21 12/27/21 Rx levetiracetam 500 mg tablet 500 mg PO BID #60 tabs 07/22/21 12/27/21 Rx (Keppra) diazepam 5 mg tablet (Valium) 5 mg PO BID PRN muscle spasm #8 12/24/21 12/27/21 Rx tabs ibuprofen 600 mg tablet 600 mg PO TID PRN pain #14 tabs 12/24/21 12/27/21 Rx rosuvastatin 10 mg tablet 10 mg PO HS 12/27/21 12/27/21 History travoprost 0.004 % eye drops 1 drp EACH EYE HS 12/17
--- NOTE | 2021-12-29 17:08 | PM.IMPN ---
Progress Note: A&P Assessment and Plan (1) Falls: Code(s): W19.XXXA - Unspecified fall, initial encounter Status: Acute Assessment and Plan: Patient has had several falls at home and is admitted again here for fall. He was down on the ground for many hours. Total CK was 851 but on repeat it is improved to 239 with the IV fluids. CT of the brain shows old infarct but no acute findings. Thoracolumbar spine CT shows no interval change in the recent L2 compression fracture. Continue PT and OT. Neurosurgery consulted. Patient is uninterested in going to rehab. braces in place. Plan is for patient to be discharged once he is cleared by therapy. SLIVF. (2) Lumbar compression fracture: Code(s): S32.000A - Wedge compression fracture of unspecified lumbar vertebra, initial encounter for closed fracture Status: Acute Assessment and Plan: CT scan here showing no interval change in the recent L2 compression fracture. Continue TLSO brace. Neuro surgery has been consulted. Appreciate their input. Try to minimize narcotics since this may be contributing to his falls. (3) Anxiety and depression: Code(s): F41.9 - Anxiety disorder, unspecified; F32.A - Depression, unspecified Status: Acute Assessment and Plan: Normal mood. Continue citalopram. He has not required the Valium since admission so we held this since this may be contributing to his falls. (4) Seizure disorder: Code(s): G40.909 - Epilepsy, unspecified, not intractable, without status epilepticus Status: Acute Assessment and Plan: Patient has had 1 seizure after his CVA in 2007. His falls could be related to unrecognized seizures but no metabolic acidosis to suggest occult seizure. Continue with Keppra. (5) Hyperlipidemia: Code(s): E78.5 - Hyperlipidemia, unspecified Status: Acute Assessment and Plan: LFTs normal. TCK noted but felt related to his being down for prolonged period. TCK close to normal. Okay to resume Crestor. (6) H/O: CVA (cerebrovascular accident): Code(s): Z86.73 - Personal history of transient ischemic attack (TIA), and cerebral infarction without residual deficits Status: Acute Assessment and Plan: CT brain showing old large CVA involving the right MCA territory. Continue with aspirin and Plavix. Continue PT/OT. He is high risk for recurrent falls. Plan DVT prophylaxis: Lovenox Code status: Full Diet: Heart healthy Subjective Date/time seen: 12/29/21 17:08 Interval history: 66yo male with hx of CVA, seizure disorder and HTN here for a fall. Not walked or been out of bed yet (therapy was waiting for NS input first). No CP or SOB. Pain better controlled today. No n/v. Exam Narrative: AF 98.0 126/65 64 18 97% ra Gen - NARD Chest - clear bilaterally, nml RR CV - RRR S1/S2 Abd - Soft, NT/ND, Positive BS Back - brace in place Ext - No pedal edema Neuro - Alert and oriented. Left hemiparesis Psych - Nml mood and affect Skin - Warm and dry Objective Data Vital Signs Vital Signs: Vital Signs - 24 hr 12/28/21 20:10 12/28/21 22:00 12/29/21 06:00 Temperature 97.5 F L 96.5 F L Pulse Rate 71 71 Respiratory Rate 19 20 Blood Pressure 138/78 137/76 Pulse Oximetry 96 99 Oxygen Delivery Room Air 12/29/21 08:00 12/29/21 14:00 Temperature 98.0 F Pulse Rate 64 Respiratory Rate 18 Blood Pressure 126/65 Pulse Oximetry 97 Oxygen Delivery Room Air Intake/Output Intake/Output: Intake & Output 12/26/21 12/27/21 12/28/21 12/29/21 23:59 23:59 23:59 23:59 Intake Total 2592 3970 460 Output Total 225 1050 2025 Balance 2367 4520 -1565 Meds/Results Medications: Active Medications Generic Name Dose Route Start Last Admin Trade Name Freq PRN Reason Stop Dose Admin Acetaminophen 650 mg 12/28/21 20:05 Acetaminophen 325 Mg Tablet PO Q4H PRN Pain (1-5) Or Fever [place]
[2021-12-29] MEDS: ENOXAPARIN 40 MG/0.4 ML SYRINGE SUB-Q (17:26)
--- NOTE | 2021-12-29 18:40 | PC.NURSE ---
pt up to chair with TLSO brace present. pt is encouraged to sit up in chair until tired or ready for bed. pt tolerated stand and pivot to chair well.
[2021-12-29 20:00] VITALS: PULSE 64; RESP 18; O2SAT 97
[2021-12-29] MEDS: ROSUVASTATIN 10 MG TABLET PO (20:14)
[2021-12-29] MEDS: LATANOPROST 0.005% OP SOLN 2.5 ML BTL 1 DROP EACH EYE (20:14)
[2021-12-29 22:00] VITALS: BP 136/87; PULSE 85; RESP 19; TEMP 35.9; O2SAT 97
[2021-12-30 06:00] VITALS: BP 150/81; PULSE 74; RESP 20; TEMP 35.5; O2SAT 98
[2021-12-30] MEDS: levETIRAcetam 500 MG TABLET PO (08:58)
[2021-12-30] MEDS: ENOXAPARIN 40 MG/0.4 ML SYRINGE SUB-Q (08:59)
[2021-12-30] MEDS: ASPIRIN 81 MG ENTERIC TABLET PO (08:59)
[2021-12-30] MEDS: LIDOCAINE 5% PATCH 1 PATCH TRANSDERM (08:59)
[2021-12-30] MEDS: CLOPIDOGREL BISULFATE 75 MG TABLET PO (08:59)
[2021-12-30] MEDS: CITALOPRAM HYDROBROMIDE 20 MG TABLET PO (08:59)
[2021-12-30] MEDS: MAGNESIUM OXIDE 400 MG TABLET PO (08:59)
--- NOTE | 2021-12-30 09:04 | PCOTNOTE ---
Attempted to see patient. Patient is currently eating breakfast and asked me to return wqhen he is finished. Will followup
[2021-12-30 10:44] VITALS: O2SAT 93
[2021-12-30 14:00] VITALS: BP 116/67; PULSE 98; RESP 22; TEMP 36.3; O2SAT 96
--- NOTE | 2021-12-30 14:30 | PM.DS ---
DS: Admitting Diagnosis Discharge Date 12/30/21 Admitting Diagnosis Fall DS: Discharge Diagnosis Discharge Diagnosis (1) Falls: Code(s): W19.XXXA - Unspecified fall, initial encounter Status: Acute (2) Lumbar compression fracture: Code(s): S32.000A - Wedge compression fracture of unspecified lumbar vertebra, initial encounter for closed fracture Status: Acute (3) Anxiety and depression: Code(s): F41.9 - Anxiety disorder, unspecified; F32.A - Depression, unspecified Status: Acute (4) Seizure disorder: Code(s): G40.909 - Epilepsy, unspecified, not intractable, without status epilepticus Status: Acute (5) Hyperlipidemia: Code(s): E78.5 - Hyperlipidemia, unspecified Status: Acute (6) H/O: CVA (cerebrovascular accident): Code(s): Z86.73 - Personal history of transient ischemic attack (TIA), and cerebral infarction without residual deficits Status: Acute DS: Summary Hospital Course Reason for hospitalization: 66yo male with hx of CVA, seizure disorder and HTN here for a fall. Please see H&P for details Hospital Course: Patient has had several falls at home and is admitted again here for fall.? He was down on the ground for many hours.? Total CK was 851 but on repeat it is improved to 239 with the IV fluids. CT of the brain shows old infarct but no acute findings.? Thoracolumbar spine CT shows no interval change in the recent L2 compression fracture. He worked with PT and OT. Neurosurgery was consulted.? We continued TLSO brace. His mood remained normal. We continued citalopram.? He has not required the Valium since admission so we held this since this may be contributing to his falls. Patient has had 1 seizure after his CVA in 2007.? His falls could be related to unrecognized seizures but no metabolic acidosis to suggest occult seizure. We continued with Keppra and no evidence of occult seizures here. Patient overall did well but felt too weak to return home. He was agreeable to halfway facility placement. Arrangements were made and patient was transferred on 12/30/2021. Status at Discharge Cognitive/behavioral status at discharge: Stable Time Spent with Patient Time attestation: Total time spent providing and/or coordinating discharge services: 35 minutes Time spent: Greater than 30 minutes Exam Narrative: AF 96.0 150/81 74 20 93% ra Gen - NARD Chest - clear bilaterally, nml RR CV - RRR S1/S2 Abd - Soft, NT/ND, Positive BS Ext - No pedal edema Neuro - Alert and oriented. Left hemiparesis Psych - Nml mood and affect Skin - Warm and dry Discharge Plan Discharge Attending physician on discharge: Emilio Silva Consulting providers: Matt Lobato Discharging Clinician: Emilio Sivla Anticipated Discharge Date/Time: 12/30/21 14:35 Patient Disposition: SNF Activity: as tolerated Diet: heart healthy Discharge Instructions: Use back brace when out of bed. Take precautions to avoid falls. Rise slowly from a lying or sitting position. Pause before standing or walking. Avoid NSAIDs (ibuprofen, naproxen, Aleve). Tylenol is safe to take. Avoid medications that could contribute to falls. Follow-up with the provider at the facility Follow-up with neuro surgery in 4-6 weeks. Please call for an appointment. Thank you for using [facility] for your health care needs. Patient Instructions: Safe Use of Anticoagulants (DC) Stand Alone Forms: General Discharge Information Follow-up/Referrals: Damir Burgos MD [Primary Care Provider] - Call for Appointment Damir Killian M.D. [Physician] - Call for Appointment Discharge Medications: New lidocaine [Lidoderm] 5 % Adhesive Patch,Medicated 1 patch transdermal DAILY Qty: 10 0RF acetaminophen [Mapap (acetaminophen)] 325 mg Tablet 650 mg PO Q4H PRN (Reason: Pain (1-5) Or Fever) Qty: 10 0RF Continued aspiri
[2021-12-30 15:22] LABS: EDCOVIDSCREEN Negative (Negative)
--- NOTE | 2021-12-30 15:45 | PC.NURSE ---
Called and gave report to URVASHI Lehman @ [facility] 12/30/21 @ 1525.
== END 2021-12-30 16:30 ==
LOC: ANHED 07:02 → ANH3MEDSUR 13:37
PROVIDERS: Nurse Practitioner; Admitting Provider Hospitalist; Emergency Provider Emergency Medicine; PCP Emergency Medicine; Visit Provider Internal Medicine
DX: S32.020A Wedge compression fracture of second lumbar vertebra, initial encounter for closed fracture (principal); M54.50 Low back pain, unspecified; W19.XXXA Unspecified fall, initial encounter; Z91.81 History of falling; I10 Essential (primary) hypertension; E78.5 Hyperlipidemia, unspecified; Z79.82 Long term (current) use of aspirin; Z85.46 Personal history of malignant neoplasm of prostate; Z86.73 Personal history of transient ischemic attack (TIA), and cerebral infarction without residual deficits; G40.909 Epilepsy, unspecified, not intractable, without status epilepticus; H40.9 Unspecified glaucoma; F41.8 Other specified anxiety disorders; Z87.891 Personal history of nicotine dependence; Z20.822 Contact with and (suspected) exposure to COVID-19
CPT/HCPCS: 36415; 70450; 72125; 72128; 72131; 80048; 80053; 81001; 82550; 83735; 85025; 87426; 93005; 96361; 96372; 96374; 96375; 97161; 97165; 97530; 99285; A9270; C9803; G0378; J1650; J1885; J2270; J7030; U0003; U0005

== ENCOUNTER 2022-01-19 10:13 | Observation (INO) | payer MEDICARE, SELFPAY ==
[2022-01-19] VITALS (30 sets, daily range): BP systolic 106–139; BP diastolic 65–81; PULSE 77–95; RESP 15–22; TEMP 36.4–37.2; O2SAT 94–100; BMI 27.5
--- NOTE | ~2022-01-19 | XR_ITS ---
XR chest 1V portable 01/19/2022 11:53 Indication: Weakness. Procedure: AP portable chest Comparison: Comparison to multiple prior studies sequentially, with oldest reviewed study dated 03/29. Findings: Heart size normal. There is atherosclerosis and ectasia of the aorta. There is overlying me tallic structure. There is biapical pleural thickening. No focal air space disease, pulmonary edema, pleural effusion or suspected pneumothorax. Impression: 1: No acute cardiopulmonary disease. Reviewed, dictated and finalized at location A. Impression: 1: No acute cardiopulmonary disease.
--- NOTE | ~2022-01-19 | MR_ITS ---
EXAMINATION: MR brain/brain stem wo/w con DATE: 01/20/2022 12:58 INDICATION: Weakness. Frequent falls. TECHNIQUE: Magnetic resonance imaging (MRI) of the brain and brainstem was performed without and with 17 mL MultiHance intravenous contrast. COMPARISON: Brain MRI 01/20/2008, head CT 01/19/2022 FINDINGS: There is chronic encephalomalacia in right frontal, temporal, and parietal lobes, right ins anais, right thalamus, and the right basal ganglia in the expected distribution of right middle cerebra l artery. There are scattered areas of nonspecific increased T2-weighted signal intensity in the cere bral white matter and any. There is no intracranial hemorrhage, acute infarction, or abnormal intrac ranial mass lesion. There is mild ex vacuo dilatation of right lateral ventricle. Cavum septum pelluc idum and vergae are noted. The orbits are normal. The paranasal sinuses are clear. The mastoid air ce lls are normal. IMPRESSION: 1. Large old infarct in the expected distribution of right middle cerebral artery. 2. Moderate nonspecific cerebral white matter disease, which likely represents chronic small vessel i schemic disease. Reviewed, dictated and finalized at location A. IMPRESSION: 1. Large old infarct in the expected distribution of right middle cerebral truman ry. 2. Moderate nonspecific cerebral white matter disease, which likely represents chronic small vessel ischemic disease.
--- NOTE | ~2022-01-19 | CT_ITS ---
EXAMINATION: CT brain wo con DATE: 01/19/2022 12:23 INDICATION: Stroke and seizures presenting with weakness, dizziness and falls TECHNIQUE: Computed tomography (CT) of the head was performed without intravenous contrast. Sagittal and coronal reconstructions were performed. The mA was adjusted according to patient size. Iterative reconstruction technique was employed. The dose-length product was 605.33 mGy-cm. COMPARISON: head CT dated 12/27/2021 FINDINGS: Chronic large region of encephalomalacia involving portion of the right frontal, parietal and tempora l lobes and portions of the right basal ganglia consistent with chronic infarct in the vascular distr ibution of the right middle cerebral artery. No acute intracranial hemorrhage, acute infarction or ab normal extra axial fluid collection. There is additional mild scattered white matter hypoattenuation consistent with chronic small vessel ischemic disease. Ventricles are normal and symmetric with norm al variant cavum septum pellucidum et vergae. No mass/mass effect. The orbits, paranasal sinuses and mastoid air cells are normal. . IMPRESSION: 1. No acute intracranial process. 2. Chronic large infarct in the right middle cerebral artery vascular distribution involving portions of the right frontal, parietal, temporal lobes and right basal ganglia. 3. Mild scattered white matter hypoattenuation consistent with chronic small vessel ischemic disease. Reviewed, dictated and finalized at location B. IMPRESSION: 1. No acute intracranial process. 2. Chronic large infarct in the right middle cerebral artery vascular distribut ion involving portions of the right frontal, parietal, temporal lobes and right basal ganglia. 3. Mild scattered white matter hypoattenuation consistent with chronic small ve ssel ischemic disease.
--- NOTE | ~2022-01-19 | MR_ITS ---
EXAMINATION: MR cervical spine wo/w con DATE: 01/20/2022 12:58 INDICATION: Weakness. TECHNIQUE: Magnetic resonance imaging (MRI) of the cervical spine was performed without and with 17 m L MultiHance intravenous contrast. COMPARISON: CT cervical spine 12/27/2021 FINDINGS: There is 6 degrees dextrocurvature of cervical spine. There is 2 mm anterolisthesis of C7 o n T1. There is mild kyphosis of cervical spine. Vertebral body heights are normal. There is mildly de creased disc height at C3-C4 and C4-C5, moderately decreased disc height at C5-C6, and severely decre ased disc height at C6-C7. The spinal cord signal intensity is normal. The following disc levels are specifically discussed: C2-C3: There is a central protrusion. There is mild bilateral uncovertebral joint osteoarthritis. The re is severe bilateral facet joint osteoarthritis. There is mild right and moderate left neural zafar inal stenosis. There is no central canal stenosis. C3-C4: The disc is bulging. There is severe bilateral uncovertebral joint osteoarthritis. There is mo derate right and severe left facet joint osteoarthritis. There is mild right and severe left neural f oraminal stenosis. There is mild central canal stenosis. C4-C5: The disc is bulging. There is severe bilateral uncovertebral joint osteoarthritis. There is mi ld right and severe left facet joint osteoarthritis. There is mild right and moderate left neural for aminal stenosis. There is mild central canal stenosis. C5-C6: The disc is bulging. There is severe bilateral uncovertebral joint osteoarthritis. There is mi ld right and moderate left facet joint osteoarthritis. There is moderate right and mild left neural f oraminal stenosis. There is mild central canal stenosis. C6-C7: The disc is bulging. There is severe bilateral uncovertebral joint osteoarthritis. There is se lupis bilateral facet joint osteoarthritis. There is mild bilateral neural foraminal stenosis. There i s mild central canal stenosis. C7-T1: The disc is bulging. There is no uncovertebral joint osteoarthritis. There is severe bilateral facet joint osteoarthritis. There is mild bilateral neural foraminal stenosis. There is no central c anal stenosis. IMPRESSION: 1. Severe cervical spondylosis. Reviewed, dictated and finalized at location A.
--- NOTE | ~2022-01-19 | MR_ITS ---
EXAMINATION: MR thoracic spine wo/w con DATE: 01/20/2022 12:58 INDICATION: Weakness. TECHNIQUE: Magnetic resonance imaging (MRI) of the thoracic spine was performed without and with 17 m L MultiHance intravenous contrast. COMPARISON: CT thoracic spine 12/27/2021 FINDINGS: There is 7 degrees levocurvature of cervicothoracic spine. Vertebral body heights are omero l. Intervertebral disc heights are normal. At T8-T9, there is a central extrusion with mild central c anal stenosis. There is multilevel facet joint osteoarthritis, severe on the right from T2-T3 through T7-T8. On the right, there is mild neural foraminal stenosis from T1-T2 through T7-T8. On the left, there is mild neural foraminal stenosis at T1-T2 and T2-T3. The spinal cord signal intensity is omero l. IMPRESSION: 1. Mild thoracic spondylosis. Reviewed, dictated and finalized at location A.
--- NOTE | ~2022-01-19 | MR_ITS ---
EXAMINATION: MR lumbar spine wo/w con DATE: 01/20/2022 12:58 INDICATION: Weakness. TECHNIQUE: Magnetic resonance imaging (MRI) of the lumbar spine was performed without and with 17 mL MultiHance intravenous contrast. COMPARISON: CT lumbar spine 12/27/2021 FINDINGS: There is 4 degrees levocurvature of lumbar spine. There are chronic bilateral L5 pars defec ts. There is 4 mm anterolisthesis of L5 on S1. There is a compression fracture of L1 with 1/5 loss of height. There is a compression fracture of L2 with 3/5 loss of height. There is moderately decreased disc height at L5-S1. The distal spinal cord signal intensity is normal. The conus medullaris is at T12-L1. The following disc levels are specifically discussed: L1-L2: The disc is bulging. There is moderate bilateral facet joint osteoarthritis. There is mild rig ht neural foraminal stenosis. There is mild central canal stenosis. L2-L3: The disc is bulging. There is mild bilateral facet joint osteoarthritis. There is mild bilater al neural foraminal stenosis. There is no central canal stenosis. L3-L4: The disc is bulging. There is mild bilateral facet joint osteoarthritis. There is mild bilater al neural foraminal stenosis. There is mild central canal stenosis. L4-L5: The disc is bulging. There is mild bilateral facet joint osteoarthritis. There is mild bilater al neural foraminal stenosis. There is mild central canal stenosis. L5-S1: The disc is bulging. There is moderate bilateral facet joint osteoarthritis. There is mild gorge ateral neural foraminal stenosis. There is no central canal stenosis. IMPRESSION: 1. L1 compression fracture, new from 12/27/2021. 2. L2 compression fracture, worsened from 12/27/2021. 3. Chronic bilateral L5 pars defects with grade 1 anterolisthesis of L5 on S1. 4. Moderate lower lumbar spondylosis. Reviewed, dictated and finalized at location A.
--- NOTE | 2022-01-19 10:27 | ECG_ITS ---
Measurements Intervals [place] Rate: 85 P: 40 VT: 139 QRS: 46 QRSD: 89 T: 37 QT: 356 QTc: 425 Interpretive Statements SINUS RHYTHM BASELINE WANDER- II, III, AVR, AVL, AVF, V1-V6 NORMAL ECG COMPARED TO ECG 12/27/2021 06:35:33 NO SIGNIFICANT CHANGES Electronically Signed On 01-19-2022 10:40:05 CDT by Rajesh Mcgrath D.O.
--- NOTE | 2022-01-19 11:14 | ED.GENADULT ---
HPI - General Adult General Chief complaint: Neuro Symptoms/Deficit Stated complaint: PCP sent for Stroke Evaluation Time Seen by Provider: 01/19/22 10:31 Source: patient and family Mode of arrival: wheelchair Limitations: no limitations History of Present Illness HPI narrative: Patient is a 66-year-old male with a history of hypertension, right-sided CVA with left-sided hemiparesis, recent L2 compression fracture, presenting to the emergency department from neurosurgeons office for evaluation of weakness, inability to ambulate and decline in functional status over the past 3 weeks. Patient has had frequent falls since December 24, evaluated in the emergency department and admitted for evaluation of potential stroke. At that point, patient was still able to ambulate independently. Patient at that point was ambulatory up to 1/2 mile without difficulty, able to complete most of his ADLs independently. Patient was evaluated by physical therapy and ultimately placed in a rehabilitation facility at [facility]. Patient was noted by family to be unable to ambulate since admission there. Patient reports progressive, worsening weakness in his left upper extremity and left lower extremity. States that every time he tries to stand he falls over which is how he sustained a lumbar compression fracture. Patient reports he is now unable to ambulate independently whatsoever, and cannot complete any of his ADLs aside from he is able to feed himself with his right upper extremity. Patient denies fever, chills, nausea, vomiting, abdominal pain, new bony pain or back pain. Patient has been compliant with his medications. Dr. Roy saw the patient in office today and due to significant functional decline, sent the patient here for evaluation with neurology consult and likely admission. Related Data Home Medications Medication Instructions Recorded Confirmed aspirin 81 mg tablet,delayed 81 mg PO DAILY 04/23/19 01/19/22 release magnesium oxide 400 mg PO DAILY 12/17/19 01/19/22 rosuvastatin 10 mg tablet 10 mg PO HS 12/27/21 01/19/22 travoprost 0.004 % eye drops 1 drp EACH EYE HS 12/27/21 01/19/22 Allergies Allergy/AdvReac Type Severity Reaction Status Date / Time No Known Allergies Allergy Verified 01/19/22 09:03 Review of Systems Review of Systems: CONSTITUTIONAL: Denies fever, chills, or sweats. ENT: Denies rhinorrhea, congestion, sore throat, or otalgia. CARDIOVASCULAR: Denies chest pain, palpitations, or edema. RESPIRATORY: Denies cough or dyspnea. GASTROINTESTINAL: Denies abdominal pain, nausea, vomiting, or diarrhea. GENITOURINARY: Denies dysuria or hematuria. SKIN: Denies rash or itching. MUSCULOSKELETAL: Denies back pain, joint pain, or myalgia. NEUROLOGIC: Denies headache, numbness, reports increased weakness left upper and left lower extremity PMF Past Medical History Medical History (Updated 01/19/22 @ 14:07 by Lexie Ortiz MD) Anxiety and depression Glaucoma H/O: CVA (cerebrovascular accident) HTN (hypertension) Hyperlipidemia Prostate cancer With radiation treatment Seizure disorder Surgical History Surgical History (Updated 01/19/22 @ 13:47 by Louisa Rahman NP) History of hand surgery carpel tunnel History of repair of rotator cuff History of ventral hernia repair Family History Family History Father Family history of cardiovascular disease Acute myocardial infarction Family history of emphysema Sibling Acute myocardial infarction Mother Family history of lung cancer Social History Social History Social History: The patient had been in the but retired from highway construction. He is single and does not have any children. His 4 sisters are his power family law attorney. He denies any alcohol marijuana illicit drugs. Code status full code. Sm
[2022-01-19 11:38] LABS: Basophils Percent Auto 0.1 % (0.2-1.2); Eosinophils Absolute Auto 0.1 K/mm3 (0-0.3); Eosinophils Percent Auto 0.6 % (0-4.4); Hematocrit 36.9 % (42.0-52.0); Hemoglobin 12.4 g/dL (14.0-18.0); Immature Granulocyte Absolute 0.05 K/mm3 (0.00-0.031); Immature Granulocyte Percent A 0.6 % (0-0.5); Lymphocytes Absolute Auto 2.79 K/mm3 (0.9-3.2); Lymphocytes Percent Auto 36.1 % (18.3-44.2); Mean Corpuscular HGB Conc 33.6 g/dl (32-36); Mean Corpuscular Volume 92.3 fl (80-100); Mean Platelet Volume 9.2 fl (7.4-10.4); Monocytes Absolute Auto 0.7 K/mm3 (0.1-0.6); Monocytes Percent Auto 9.2 % (2.6-8.5); Neutrophils Absolute Auto 4.1 K/mm3 (1.3-6.7); Neutrophils Percent Auto 53.4 % (45.5-73.1); Platelet Count Result 268 k/mm3 (150-375); Red Cell Distribution Width 13.2 % (11.5-14.5); White Blood Count 7.7 K/mm3 (4.5-10.0)
[2022-01-19] MEDS: SODIUM CHLORIDE 0.9% IV 500 ML 999 ML IV CONT (11:39)
--- NOTE | 2022-01-19 11:41 | PC.NURSE ---
Patient attempting to urinate at this time.
[2022-01-19 11:47] LABS: INR 1.1; Prothrombin Time 14.1 Seconds (11.1-14.7)
[2022-01-19 11:48] LABS: Partial Thromboplastin Time 26.9 SECONDS (22.3-36.8)
[2022-01-19 11:51] LABS: Anion Gap 10 mmol/L (8-16); Blood Urea Nitrogen 14 mg/dL (9-20); Calcium 10.2 mg/dL (8.4-10.2); Carbon Dioxide 26 mmol/L (22-30); Chloride 102 mmol/L (98-107); Creatine Kinase 59 U/L (55-170); Estimated Glomerular Filt Rate > 60; Glucose 94 mg/dL (65-110); Sodium 138 mmol/L (137-145)
[2022-01-19 12:02] LABS: Troponin I < 0.012 ng/mL (0.000-0.034)
[2022-01-19 12:23] LABS: Appearance Urine Clear (Clear); Bilirubin Urine 1+ (Negative); Blood Urine 2+ (Negative); Color Urine Yellow (Yellow); Glucose Urine UA Negative (Negative); Ketones Urine Trace mg/dL (Negative); Leukocyte Esterase Ur Negative LEU/UL (Negative); Nitrate Urine Negative (Negative); Protein Urine 2+ mg/dL (Negative); Specific Grav Ur >= 1.030 (1.001-1.035); pH Urine 5.5 (5.0-9.0)
[2022-01-19 12:54] LABS: Calcium Oxalate Crystals Urine Many /hpf; Mucus Urine Rare /lpf; RBC Urine 0-2 /hpf (0-2); Squamous Epithelial Cell Urine Rare /hpf (Few)
[2022-01-19 12:55] LABS: Add Urine Microscopic? YES
--- NOTE | 2022-01-19 13:46 | PM.IMHP ---
H&P: HPI History of Present Illness Date/Time: 01/19/22 13:46 Chief Complaint: Neuro symptoms Narrative: This is 66-year-old male patient who has a history of hypertension, right-sided CVA with left-sided hemiparesis And a recent L2 compression fracture. The patient stated that he has been seen by the rehab but neurological physician who sent him to the hospital. The patient has increased weakness and inability to ambulate and decline in functional status over the last 3 weeks. The patient has had a large right sided CVA with left side effect. However he stated that his extremities her left upper and lower her wore weekend over the last 3 weeks. He states that every time he tries to stand he falls over and that is how he sustained a lumbar fracture. The patient is unable to ambulate independent and can no longer perform any ADLs other than feed himself. The patient is currently at [facility] rehab facility. The patient used to be ambulatory and used to be able to the perform his own ADLs but is no longer able to do that. The patient's H&H is 12.4 and 36.9. His creatinine is 1.4 today when it is typically normal. Troponin is normal his TSH is normal. His Keppra level is pending. Head CT is read as no acute intracranial process chronic large infarct in the right middle cerebral artery vascular distribution involving portions of the right frontal, parietal, temporal lobes and right basal ganglia. Mild scattered white matter hypoattenuation consistent with chronic small vessel ischemic disease. The patient is on Plavix and aspirin at home as well as rosuvastatin and he states that he takes his medications as scheduled. The patient was given IV fluids in the emergency room. Patient is being admitted to observation status on the date of service of 01/19/2022. Review of Systems Review of Systems: See HPI All systems reviewed & are unremarkable except as noted in HPI and below Constitutional: Constitutional: Reports as per HPI and Reports no additional constitutional complaints Eyes: Eyes: Reports as per HPI and Reports no additional eye complaints ENT: Reports system reviewed and no additional complaints, except as documented and Reports Normal hearing present Cardiovascular: Cardiovascular: Reports no additional cardiovascular complaints Respiratory: Respiratory: Reports no additional respiratory complaints and Reports no additional respiratory complaints Gastrointestinal: Gastrointestinal: Reports as per HPI and Reports no additional gastrointestinal complaints Musculoskeletal: Musculoskeletal: Reports no additional musculoskeletal complaints Integumentary/Breasts: Skin/Breast: Reports system reviewed and no additional complaints, except as docu and Reports as per HPI Neurologic: Reports system reviewed and no additional complaints, except as documented, Reports as per HPI and Reports Normal hearing present Psychiatric: Psychiatric: Reports no additional psychiatric complaints and Reports as per HPI Endocrine: Endocrine: Reports no additional endocrine complaints Hematologic/Lymphatic: Hematologic/Lymphatic: Reports no additional hematologic/lymphatic complaints Allergic/Immunologic: Allergic/Immunologic: Reports no additional allergic/immunologic complaints PMF Past Medical History Medical History Anxiety and depression Glaucoma H/O: CVA (cerebrovascular accident) HTN (hypertension) Hyperlipidemia Prostate cancer With radiation treatment Seizure disorder Surgical History Surgical History History of hand surgery carpel tunnel History of repair of rotator cuff History of ventral hernia repair Family History Family History Father Family history of cardiovascular disease Acute myocardial infarction Family history of emphysema Sibling
--- NOTE | 2022-01-19 14:50 | ADMGEN ---
This patient, Roman La, was admitted to Medical Room 255-. Patient/family oriented to hospital policies and general routines including ID bracelet, bed and alarms, visiting hours, pain management, procedures, bathroom and other care routines, personal items, smoking policy, room service/diet, and visiting hours. Information on how to activate the Rapid Response Team has been discussed. Patient/Family are encouraged to report perceived risks to care and to ask questions if they do not understand what they are told or what they should do.
--- NOTE | 2022-01-19 15:29 | WPDNEURCNPN ---
Consult date: 01/19/22 Reason for consult: neuro deficit HPI: Roman La is a 66 year old male admitted to the hospital through the emergency room for the stroke evaluation. Patient has ongoing history of hypertension, left hemiparesis, L2 compression fracture, referred to the hospital from the neurosurgical office for the complaints of weakness with inability to ambulate and recent decline in functional status over the last 3 weeks resulting in frequent falls. Patient was reportedly able to ambulate up to half a mi without difficulty and able to complete most of his ADL independently, was evaluated by Physical therapy and ultimately placed in a rehabilitation facility at [facility] but was noted to be unable to ambulate since admission there by the family and with the statement that he was progressively getting worse particularly in the left upper extremity and left lower extremity ,every time he tried to stand he fell over and resulted in the lumbar compression fracture ,he has no generalized symptomatology ,has been taking aspirin 81 mg daily along with a statin 10 mg daily, he does have ongoing history of hypertension with hyperlipidemia, in the past seizure disorder , and history of prostatic cancer with radiation treatment, has undergone rotator cuff repair, he is a former smoker ,currently drinks 6 drinks per week initial vital signs were normal so as the CBC and CMP initial, CT scan of the head on January 19, 2022 revealed chronic large infarct in the right middle cerebral artery vascular distribution involving the portion of the right frontal parietal and temporal lobes and right basal ganglia along with the hypoattenuation consistent with the chronic small-vessel ischemic disease, EKG revealed no atrial fibrillation ,medications include aspirin 81 mg as mentioned above in addition to Plavix 75 mg daily and levetiracetam 500 mg p.o. b.i.d. Review of Systems Review of Systems: All systems reviewed & are unremarkable except as noted in HPI and below [facility] Past Medical History Medical History (Updated 01/19/22 @ 14:07 by Lexie Ortiz MD) Anxiety and depression Glaucoma H/O: CVA (cerebrovascular accident) HTN (hypertension) Hyperlipidemia Prostate cancer With radiation treatment Seizure disorder Surgical History Surgical History (Updated 01/19/22 @ 13:47 by Louisa Rahman NP) History of hand surgery carpel tunnel History of repair of rotator cuff History of ventral hernia repair Family History Family History Father Family history of cardiovascular disease Acute myocardial infarction Family history of emphysema Sibling Acute myocardial infarction Mother Family history of lung cancer Social History Social History Social History: The patient had been in the but retired from highway construction. He is single and does not have any children. His 4 sisters are his power ip technology transactions attorney. He denies any alcohol marijuana illicit drugs. Code status full code. Smoking packs per day: 0.2 Smoking cigarettes per day: 4.0 Years smoked: 15 Smoking pack-years: 3.00 Smoking status: Former smoker Alcohol intake: current Drinks per week: 1 Substance use: never Has the Lack of Transportation Kept You From Medical Appointments or From Getting Medications?: No Within the Past 12 Months, Were You Worried Whether Your Food Would Run Out Before You Got Money to Buy More?: Never True What is Your Housing Situation Today?: I Have Housing Are You Worried That in the Next 2 Months, You May Not Have Your Own Housing to Live In?: No Do You Have Trouble Paying Your Heating Or Electricity Bill?: No Do You Have Trouble Paying For Medicines?: No Are You Currently Unemployed and Looking for Work?: No Highest Level of Education Completed: Associate Degree [employer]
[2022-01-19] MEDS: levETIRAcetam 500 MG TABLET PO (16:56)
[2022-01-19] MEDS: ACETAMINOPHEN 325 MG TABLET 650 MG PO (18:16)
[2022-01-19] MEDS: LATANOPROST 0.005% OP SOLN 2.5 ML BTL 1 DROP EACH EYE (20:15)
[2022-01-19] MEDS: ROSUVASTATIN 10 MG TABLET PO (20:15)
[2022-01-20] VITALS (9 sets, daily range): BP systolic 110–117; BP diastolic 63–73; PULSE 74–90; RESP 16–20; TEMP 36.2–37.2; O2SAT 94–97
[2022-01-20 05:36] LABS: Basophils Percent Auto 0.4 % (0.2-1.2); Eosinophils Absolute Auto 0.1 K/mm3 (0-0.3); Eosinophils Percent Auto 1.2 % (0-4.4); Hematocrit 35.2 % (42.0-52.0); Hemoglobin 11.7 g/dL (14.0-18.0); Immature Granulocyte Absolute 0.02 K/mm3 (0.00-0.031); Immature Granulocyte Percent A 0.4 % (0-0.5); Lymphocytes Absolute Auto 2.13 K/mm3 (0.9-3.2); Lymphocytes Percent Auto 37.5 % (18.3-44.2); Mean Corpuscular HGB Conc 33.2 g/dl (32-36); Mean Corpuscular Volume 93.4 fl (80-100); Mean Platelet Volume 9.8 fl (7.4-10.4); Monocytes Absolute Auto 0.6 K/mm3 (0.1-0.6); Monocytes Percent Auto 9.7 % (2.6-8.5); Neutrophils Absolute Auto 2.9 K/mm3 (1.3-6.7); Neutrophils Percent Auto 50.8 % (45.5-73.1); Platelet Count Result 242 k/mm3 (150-375); Red Blood Count 3.77 M/mm3 (4.6-6.20); Red Cell Distribution Width 13.1 % (11.5-14.5); White Blood Count 5.7 K/mm3 (4.5-10.0)
[2022-01-20 05:41] LABS: Lactic Acid Reflex 0.7 mmol/L (0.7-2.0)
[2022-01-20 05:44] LABS: Alanine Aminotransferase 22 U/L (6-50); Albumin Level 3.9 g/dL (3.5-5.1); Alkaline Phosphatase 104 U/L (38-126); Anion Gap 8 mmol/L (8-16); Aspartate Amino Transferase 24 U/L (17-59); Bilirubin,Total 0.5 mg/dL (0.2-1.3); Blood Urea Nitrogen 13 mg/dL (9-20); Calcium 9.7 mg/dL (8.4-10.2); Carbon Dioxide 25 mmol/L (22-30); Chloride 105 mmol/L (98-107); Estimated CRCL calculation 54 ml/min; Estimated Glomerular Filt Rate > 60; Glucose 83 mg/dL (65-110); Magnesium 1.9 mg/dL (1.6-2.3); Potassium 3.8 mmol/L (3.4-5.0); Sodium 138 mmol/L (137-145)
--- NOTE | 2022-01-20 08:01 | PCPTNOTE ---
Will see pt when MRI of spine is completed
[2022-01-20] MEDS: levETIRAcetam 500 MG TABLET PO ×2 (08:11→16:30)
[2022-01-20] MEDS: ASPIRIN 81 MG ENTERIC TABLET PO (08:11)
[2022-01-20] MEDS: MAGNESIUM OXIDE 400 MG TABLET PO (08:12)
[2022-01-20] MEDS: CLOPIDOGREL BISULFATE 75 MG TABLET PO (08:12)
[2022-01-20] MEDS: CITALOPRAM HYDROBROMIDE 20 MG TABLET PO (08:12)
--- NOTE | 2022-01-20 13:16 | PC.NURSE ---
On 01/20/22, the student, [Yokasta Mast], provided care and completed [facility] documentation on this patient. I have reviewed the student's documentation and agree with the findings.
--- NOTE | 2022-01-20 13:21 | PM.IMPN ---
Progress Note: A&P Assessment and Plan (1) Hyperlipidemia: Code(s): E78.5 - Hyperlipidemia, unspecified Status: Acute (2) HTN (hypertension): Code(s): I10 - Essential (primary) hypertension Status: Acute (3) Prostate cancer: Code(s): C61 - Malignant neoplasm of prostate Status: Acute (4) Depression: Code(s): F32.9 - Major depressive disorder, single episode, unspecified Status: Acute (5) Anxiety and depression: Code(s): F41.9 - Anxiety disorder, unspecified; F32.A - Depression, unspecified Status: Acute (6) Lumbar compression fracture: Code(s): S32.000A - Wedge compression fracture of unspecified lumbar vertebra, initial encounter for closed fracture Status: Acute (7) Low back pain: Code(s): M54.50 - Low back pain, unspecified Status: Acute (8) Falls: Code(s): W19.XXXA - Unspecified fall, initial encounter Status: Acute (9) Rhabdomyolysis: Code(s): M62.82 - Rhabdomyolysis Status: Acute (10) Weakness: Code(s): R53.1 - Weakness Status: Acute (11) Declining functional status: Code(s): R53.81 - Other malaise Status: Acute (12) H/O: CVA (cerebrovascular accident): Code(s): Z86.73 - Personal history of transient ischemic attack (TIA), and cerebral infarction without residual deficits Status: Acute (13) Seizure disorder: Code(s): G40.909 - Epilepsy, unspecified, not intractable, without status epilepticus Status: Acute (14) Glaucoma: Code(s): H40.9 - Unspecified glaucoma Status: Acute (15) Occlusion and stenosis of left carotid artery: Code(s): I65.22 - Occlusion and stenosis of left carotid artery Status: Acute Plan 01/19/22 -PT and OT evaluation greatly be appreciated.? -clearance coordinator evaluation would? greatly be appreciated.? Although the patient is in a rehab facility.? The patient appears to be declining in health.? The patient may benefit from being placed in a intermediate facility permanently. -neurology consultation with greatly be appreciated. 1. No acute intracranial process. 2. Chronic large infarct in the right middle cerebral artery vascular distribution involving portions of the right frontal, parietal, temporal lobes and right basal ganglia. 3. Mild scattered white matter hypoattenuation consistent with chronic small vessel ischemic disease -MRI of the brain and brainstem as been ordered and the spine. -PT and OT evaluation greatly be appreciated. -the patient has a history of having a large stroke with left-sided affect. Continue with aspirin and Plavix.? As well as rosuvastatin -neurology consultation would greatly be appreciated. -check Keppra level Elbow was blood his flu route. Continue with citalopram Continue with patient's eyedrops -check Keppra levels and continue with Keppra. -neurology has already been consulted. -continue with citalopram No further complications. P.r.n. hydralazine Continue with Crestor 01/20/22 MRI shows old infarct no acute findings CT spine pending worsening weakness without HYDROELECTRIC STATION CHIEF findings will consult neurosurgery home meds are appropriately reconciled PT OT when cleared by Neurosurgery Subjective Date/time seen: 01/20/22 13:21 pt doing ok pending imaging results requesting PT/OT , persistent L sided weakness Review of Systems Review of Systems: All systems reviewed & are unremarkable except as noted in HPI and below Objective Data Vital Signs Vital Signs: Vital Signs - 24 hr 01/19/22 13:29 01/19/22 13:30 01/19/22 13:31 Temperature Pulse Rate 78 78 77 Respiratory Rate 16 16 17 Blood Pressure 139/73 Pulse Oximetry 97 98 97 Oxygen Delivery 01/19/22 14:04 01/19/22 14:45 01/19/22 16:00 Temperature 98.1 F Pulse Rate 80 78 79 Respiratory Rate 19 16 Blood Pressure 127/65 Pulse Oximetry 99 98 Oxygen Delivery 01/19/22 16:29 01/19/22 20:
--- NOTE | 2022-01-20 15:37 | PCOTNOTE ---
Pt. awaiting consult from neurosurgeon. Therapy waiting on evaluation until after consult to determine safety regarding mobilization. Nursing aware. Bedrest orders still in place.
[2022-01-20] MEDS: LATANOPROST 0.005% OP SOLN 2.5 ML BTL 1 DROP EACH EYE (20:47)
[2022-01-20] MEDS: ACETAMINOPHEN 325 MG TABLET 650 MG PO (20:47)
[2022-01-20] MEDS: ROSUVASTATIN 10 MG TABLET PO (20:48)
[2022-01-21] VITALS (9 sets, daily range): BP systolic 113–140; BP diastolic 70–82; PULSE 79–101; RESP 16–18; TEMP 36.3–36.5; O2SAT 94–96
--- NOTE | 2022-01-21 08:09 | PCPTNOTE ---
Awaiting neurosurgery consult to clear patient for activity with or without restriction.
[2022-01-21] MEDS: MAGNESIUM OXIDE 400 MG TABLET PO (08:12)
[2022-01-21] MEDS: ASPIRIN 81 MG ENTERIC TABLET PO (08:12)
[2022-01-21] MEDS: levETIRAcetam 500 MG TABLET PO ×2 (08:12→17:16)
[2022-01-21] MEDS: CLOPIDOGREL BISULFATE 75 MG TABLET PO (08:12)
[2022-01-21] MEDS: CITALOPRAM HYDROBROMIDE 20 MG TABLET PO (08:13)
--- NOTE | 2022-01-21 08:32 | PM.IMPN ---
Progress Note: A&P Assessment and Plan (1) Hyperlipidemia: Code(s): E78.5 - Hyperlipidemia, unspecified Status: Acute (2) HTN (hypertension): Code(s): I10 - Essential (primary) hypertension Status: Acute (3) Prostate cancer: Code(s): C61 - Malignant neoplasm of prostate Status: Acute (4) Depression: Code(s): F32.9 - Major depressive disorder, single episode, unspecified Status: Acute (5) Anxiety and depression: Code(s): F41.9 - Anxiety disorder, unspecified; F32.A - Depression, unspecified Status: Acute (6) Lumbar compression fracture: Code(s): S32.000A - Wedge compression fracture of unspecified lumbar vertebra, initial encounter for closed fracture Status: Acute (7) Low back pain: Code(s): M54.50 - Low back pain, unspecified Status: Acute (8) Falls: Code(s): W19.XXXA - Unspecified fall, initial encounter Status: Acute (9) Rhabdomyolysis: Code(s): M62.82 - Rhabdomyolysis Status: Acute (10) Weakness: Code(s): R53.1 - Weakness Status: Acute (11) Declining functional status: Code(s): R53.81 - Other malaise Status: Acute (12) H/O: CVA (cerebrovascular accident): Code(s): Z86.73 - Personal history of transient ischemic attack (TIA), and cerebral infarction without residual deficits Status: Acute (13) Seizure disorder: Code(s): G40.909 - Epilepsy, unspecified, not intractable, without status epilepticus Status: Acute (14) Glaucoma: Code(s): H40.9 - Unspecified glaucoma Status: Acute (15) Occlusion and stenosis of left carotid artery: Code(s): I65.22 - Occlusion and stenosis of left carotid artery Status: Acute Plan 01/19/22 -PT and OT evaluation greatly be appreciated.? -relations coordinator evaluation would? greatly be appreciated.? Although the patient is in a rehab facility.? The patient appears to be declining in health.? The patient may benefit from being placed in a long-term facility permanently. -neurology consultation with greatly be appreciated. 1. No acute intracranial process. 2. Chronic large infarct in the right middle cerebral artery vascular distribution involving portions of the right frontal, parietal, temporal lobes and right basal ganglia. 3. Mild scattered white matter hypoattenuation consistent with chronic small vessel ischemic disease -MRI of the brain and brainstem as been ordered and the spine. -PT and OT evaluation greatly be appreciated. -the patient has a history of having a large stroke with left-sided affect. Continue with aspirin and Plavix.? As well as rosuvastatin -neurology consultation would greatly be appreciated. -check Keppra level Elbow was blood his flu route. Continue with citalopram Continue with patient's eyedrops -check Keppra levels and continue with Keppra. -neurology has already been consulted. -continue with citalopram No further complications. P.r.n. hydralazine Continue with Crestor 01/20/22 MRI shows old infarct no acute findings CT spine pending worsening weakness without SOUND DESIGNER findings will consult neurosurgery home meds are appropriately reconciled PT OT when cleared by Neurosurgery 01/21/22 tamsulosin outpt uro eval pending NS consult Dr Killian ( I have called to his service to speak with him, pending call back) PT/OT Subjective Date/time seen: 01/21/22 08:32 pending neurosurg eval , pt reported frequent low volume voids, he also reports that his ability to walk has been compromised since Dec 24 he is seeing NS and is reassured that this doctor has been consulted Review of Systems Review of Systems: All systems reviewed & are unremarkable except as noted in HPI and below Exam Narrative: GEN: NAD, AAOx3, cooperative HEENT: NCAT, MMM, EOMI Neck: no JVD Heart: S1S2 RRR Lungs: CTA B/l Abd: soft, NT, ND, bowel sounds normoactive Neuro: normal cognition,
--- NOTE | 2022-01-21 09:59 | PCOTNOTE ---
Waiting on neurosurgery consult; will continue to follow for OT evaluation when able.
[2022-01-21] MEDS: TAMSULOSIN HCL 0.4 MG CAPSULE PO (10:05)
--- NOTE | 2022-01-21 14:49 | PCOTNOTE ---
Spoke with RN and awaiting neurosurgery consult orders. RN attempting to contact MD. Will attempt again when orders are received.
--- NOTE | 2022-01-21 14:49 | PCPTNOTE ---
Spoke to patient RN, clarified awaiting neurosurgery consultation documentation to clear pt for activity with PT.
--- NOTE | 2022-01-21 16:58 | PM.EVENT ---
Event Note Event Note Event Note: I reviewed the mri studies of the brain, cervical spine, thoracic spine, lumbar spine. I spoke with the patient yesterday on the phone and with his admitting physician today about these findings. I attempted to reach his sister twice and left phone messages. The studies show multi-level degenerative changes. He has severe spondylosis in the cervical spine, but no cord compression and no cord signal abnormality. He has moderate degenerative changes in the thoracic spine without cord abnormality. He has a L2 and now a mild L1 compression fracture. The L2 fracture is slightly worse than prior imaging. He has L5 pars defects and mild L5 foraminal stenosis. The brain MRI shows his prior right hemispheric stroke, but no new findings compared to prior imaging. These findings do not explain his recent difficulties with gait, balance, mobility and functional capacity, particularly in light of his improving back pain which does not seem to be a limiting factor. I appreciate the input from Dr. Gonzalez. I defer to him regarding further neurologic evaluation. PT/OT will be useful and perhaps a referral for acute rehab. He should continue to wear his brace when out of bed and I will visit with him again in 2 months with repeat xrays.
--- NOTE | 2022-01-21 17:39 | P.PNCROSS_ITS ---
Event Note Event Note Event Note: I would also recommend a bone density study given his 2 recent compression frac tures resulting from a low impact injury. I would not recommend vertebroplasty or kyphoplasty at this time, as his pain is well controlled.
[2022-01-21 21:02] LABS: Levetiracetam Keppra 23.5 mcg/mL (6.0-46.0)
[2022-01-21] MEDS: ACETAMINOPHEN 325 MG TABLET 650 MG PO (21:57)
[2022-01-21] MEDS: LATANOPROST 0.005% OP SOLN 2.5 ML BTL 1 DROP EACH EYE (21:57)
[2022-01-21] MEDS: ROSUVASTATIN 10 MG TABLET PO (21:57)
[2022-01-22 05:25] VITALS: BP 114/70; PULSE 94; RESP 18; TEMP 36.9; O2SAT 93
[2022-01-22 08:31] VITALS: BMI 10.0
[2022-01-22 08:41] VITALS: BMI 10.0
[2022-01-22] MEDS: CITALOPRAM HYDROBROMIDE 20 MG TABLET PO (10:03)
[2022-01-22] MEDS: ASPIRIN 81 MG ENTERIC TABLET PO (10:03)
[2022-01-22] MEDS: CLOPIDOGREL BISULFATE 75 MG TABLET PO (10:04)
[2022-01-22] MEDS: TAMSULOSIN HCL 0.4 MG CAPSULE PO (10:04)
[2022-01-22] MEDS: levETIRAcetam 500 MG TABLET PO ×2 (10:04→17:22)
[2022-01-22] MEDS: MAGNESIUM OXIDE 400 MG TABLET PO (10:04)
--- NOTE | 2022-01-22 12:00 | PM.IMPN ---
Progress Note: A&P Assessment and Plan (1) Hyperlipidemia: Code(s): E78.5 - Hyperlipidemia, unspecified Status: Acute (2) HTN (hypertension): Code(s): I10 - Essential (primary) hypertension Status: Acute (3) Prostate cancer: Code(s): C61 - Malignant neoplasm of prostate Status: Acute (4) Depression: Code(s): F32.9 - Major depressive disorder, single episode, unspecified Status: Acute (5) Anxiety and depression: Code(s): F41.9 - Anxiety disorder, unspecified; F32.A - Depression, unspecified Status: Acute (6) Lumbar compression fracture: Code(s): S32.000A - Wedge compression fracture of unspecified lumbar vertebra, initial encounter for closed fracture Status: Acute (7) Low back pain: Code(s): M54.50 - Low back pain, unspecified Status: Acute (8) Falls: Code(s): W19.XXXA - Unspecified fall, initial encounter Status: Acute (9) Weakness: Code(s): R53.1 - Weakness Status: Acute (10) Declining functional status: Code(s): R53.81 - Other malaise Status: Acute (11) H/O: CVA (cerebrovascular accident): Code(s): Z86.73 - Personal history of transient ischemic attack (TIA), and cerebral infarction without residual deficits Status: Acute (12) Seizure disorder: Code(s): G40.909 - Epilepsy, unspecified, not intractable, without status epilepticus Status: Acute (13) Glaucoma: Code(s): H40.9 - Unspecified glaucoma Status: Acute (14) Occlusion and stenosis of left carotid artery: Code(s): I65.22 - Occlusion and stenosis of left carotid artery Status: Acute Plan 01/19/22 -PT and OT evaluation greatly be appreciated.? -customer care coordinator evaluation would? greatly be appreciated.? Although the patient is in a rehab facility.? The patient appears to be declining in health.? The patient may benefit from being placed in a care home facility permanently. -neurology consultation with greatly be appreciated. 1. No acute intracranial process. 2. Chronic large infarct in the right middle cerebral artery vascular distribution involving portions of the right frontal, parietal, temporal lobes and right basal ganglia. 3. Mild scattered white matter hypoattenuation consistent with chronic small vessel ischemic disease -MRI of the brain and brainstem as been ordered and the spine. -PT and OT evaluation greatly be appreciated. -the patient has a history of having a large stroke with left-sided affect. Continue with aspirin and Plavix.? As well as rosuvastatin -neurology consultation would greatly be appreciated. -check Keppra level Elbow was blood his flu route. Continue with citalopram Continue with patient's eyedrops -check Keppra levels and continue with Keppra. -neurology has already been consulted. -continue with citalopram No further complications. P.r.n. hydralazine Continue with Crestor 01/20/22 MRI shows old infarct no acute findings CT spine pending worsening weakness without NEGATIVE CHECKER findings will consult neurosurgery home meds are appropriately reconciled PT OT when cleared by Neurosurgery 01/21/22 tamsulosin outpt uro eval pending NS consult Dr Killian ( I have called to his service to speak with him, pending call back) PT/OT 01/22/22 Spoke with Neurosurgery recommendations greatly appreciated patient is appropriate for discharge to acute rehab or subacute rehab for ongoing care baclofen added for spasticity brace when out of bed PT OT if patient does not have significant improvement with rehabilitation he will require etiology workup by tertiary level facility consult case management for discharge planning Subjective Date/time seen: 01/22/22 12:00 doing ok complains of L sided muscle spasm w lying on R side and back pain when takes a deep breath in the same area Review of Systems Review of Systems: All systems reviewed & are unremarkable
[2022-01-22 13:44] VITALS: BP 109/63; PULSE 92; RESP 16; TEMP 36.1; O2SAT 99
[2022-01-22] MEDS: BACLOFEN 5 MG TABLET PO ×2 (15:26→20:00)
[2022-01-22 20:00] VITALS: PULSE 92; RESP 16; O2SAT 95
[2022-01-22] MEDS: ROSUVASTATIN 10 MG TABLET PO (20:00)
[2022-01-22] MEDS: LATANOPROST 0.005% OP SOLN 2.5 ML BTL 1 DROP EACH EYE (20:01)
[2022-01-22 21:18] VITALS: BP 104/69; PULSE 92; RESP 16; TEMP 36.8; O2SAT 95
[2022-01-23 04:53] VITALS: BP 105/73; PULSE 78; RESP 16; TEMP 36.4; O2SAT 97
[2022-01-23] MEDS: BACLOFEN 5 MG TABLET PO ×3 (06:44→20:45)
[2022-01-23] MEDS: ASPIRIN 81 MG ENTERIC TABLET PO (08:19)
[2022-01-23] MEDS: CLOPIDOGREL BISULFATE 75 MG TABLET PO (08:20)
[2022-01-23] MEDS: MAGNESIUM OXIDE 400 MG TABLET PO (08:20)
[2022-01-23] MEDS: levETIRAcetam 500 MG TABLET PO ×2 (08:20→17:17)
[2022-01-23] MEDS: CITALOPRAM HYDROBROMIDE 20 MG TABLET PO (08:20)
[2022-01-23] MEDS: TAMSULOSIN HCL 0.4 MG CAPSULE PO (08:21)
[2022-01-23 14:00] VITALS: BP 127/82; PULSE 90; RESP 14; TEMP 36.7; O2SAT 98
--- NOTE | 2022-01-23 16:14 | PM.DS ---
DS: Summary Time Spent with Patient Time attestation: Total time spent providing and/or coordinating discharge services: Discharge Plan Discharge Attending physician on discharge: Shania Jacksno Consulting providers: Franco Gonzalez Discharging Clinician: Shania Jackson Anticipated Discharge Date/Time: 01/23/22 12:00 Patient Disposition: SNF Activity: as tolerated Diet: as tolerated Patient Instructions: Clopidogrel (By mouth), Suicide Prevention (DC) Stand Alone Forms: General Discharge Information, Prison Discharge Follow-up/Referrals: Damir Burgos MD [Primary Care Provider] - Damir Killian M.D. [Physician] - Discharge Medications: New hydrocodone-acetaminophen 5-325 mg Tablet 1 tablet PO Q6H PRN (Reason: Pain Rated 7-10) Qty: 10 0RF tamsulosin 0.4 mg Capsule 0.4 mg PO QAM 30 Days Qty: 30 0RF methocarbamol 750 mg tablet 750 mg PO TID Qty: 30 0RF calcium carbonate 500 mg calcium (1,250 mg) Tablet,Chewable 200 mg PO Q6H PRN (Reason: Indigestion) 30 Days Qty: 30 0RF Continued aspirin 81 mg tablet,delayed release (DR/EC) 81 mg PO DAILY magnesium oxide 400 mg magnesium tablet 400 mg PO DAILY travoprost 0.004 % drops 1 drp EACH EYE HS rosuvastatin 10 mg tablet 10 mg PO HS acetaminophen [Mapap (acetaminophen)] 325 mg Tablet 650 mg PO Q4H PRN (Reason: Pain (1-5) Or Fever) Qty: 10 0RF clopidogrel [Plavix] 75 mg tablet 75 mg PO DAILY Qty: 90 3RF citalopram 20 mg tablet 20 mg PO DAILY Qty: 90 3RF levetiracetam [Keppra] 500 mg tablet 500 mg PO BID Qty: 60 0RF Date of admission: 01/19/22 13:01 Primary Care Provider: Damir Burgos Admitting Provider: Janeth Donovan Attending physician on admission: Janeth Donovan Condition: Stable
--- NOTE | 2022-01-23 18:20 | PM.IMPN ---
Progress Note: A&P Assessment and Plan (1) Hyperlipidemia: Code(s): E78.5 - Hyperlipidemia, unspecified Status: Acute (2) HTN (hypertension): Code(s): I10 - Essential (primary) hypertension Status: Acute (3) Prostate cancer: Code(s): C61 - Malignant neoplasm of prostate Status: Acute (4) Depression: Code(s): F32.9 - Major depressive disorder, single episode, unspecified Status: Acute (5) Anxiety and depression: Code(s): F41.9 - Anxiety disorder, unspecified; F32.A - Depression, unspecified Status: Acute (6) Lumbar compression fracture: Code(s): S32.000A - Wedge compression fracture of unspecified lumbar vertebra, initial encounter for closed fracture Status: Acute (7) Low back pain: Code(s): M54.50 - Low back pain, unspecified Status: Acute (8) Falls: Code(s): W19.XXXA - Unspecified fall, initial encounter Status: Acute (9) Weakness: Code(s): R53.1 - Weakness Status: Acute (10) Declining functional status: Code(s): R53.81 - Other malaise Status: Acute (11) H/O: CVA (cerebrovascular accident): Code(s): Z86.73 - Personal history of transient ischemic attack (TIA), and cerebral infarction without residual deficits Status: Acute (12) Seizure disorder: Code(s): G40.909 - Epilepsy, unspecified, not intractable, without status epilepticus Status: Acute (13) Glaucoma: Code(s): H40.9 - Unspecified glaucoma Status: Acute (14) Occlusion and stenosis of left carotid artery: Code(s): I65.22 - Occlusion and stenosis of left carotid artery Status: Acute Plan 01/19/22 -PT and OT evaluation greatly be appreciated.? -spiritual care coordinator evaluation would? greatly be appreciated.? Although the patient is in a rehab facility.? The patient appears to be declining in health.? The patient may benefit from being placed in a [facility] facility permanently. -neurology consultation with greatly be appreciated. 1. No acute intracranial process. 2. Chronic large infarct in the right middle cerebral artery vascular distribution involving portions of the right frontal, parietal, temporal lobes and right basal ganglia. 3. Mild scattered white matter hypoattenuation consistent with chronic small vessel ischemic disease -MRI of the brain and brainstem as been ordered and the spine. -PT and OT evaluation greatly be appreciated. -the patient has a history of having a large stroke with left-sided affect. Continue with aspirin and Plavix.? As well as rosuvastatin -neurology consultation would greatly be appreciated. -check Keppra level Elbow was blood his flu route. Continue with citalopram Continue with patient's eyedrops -check Keppra levels and continue with Keppra. -neurology has already been consulted. -continue with citalopram No further complications. P.r.n. hydralazine Continue with Crestor 01/20/22 MRI shows old infarct no acute findings CT spine pending worsening weakness without ORDERING MACHINE OPERATOR findings will consult neurosurgery home meds are? appropriately reconciled PT OT when cleared by Neurosurgery 01/21/22 tamsulosin outpt uro eval pending NS consult Samuel Killian ( I have called to his service to speak with him, pending call back) PT/OT 01/22/22 Spoke with Neurosurgery recommendations greatly appreciated patient is appropriate for discharge to acute rehab or? subacute rehab for ongoing care ?baclofen added for spasticity ?brace when out of bed ?PT OT ?if patient does not have significant improvement with rehabilitation he will require ? etiology workup by tertiary level facility ?consult case management for discharge planning 01/23/22 dc anticipated today but pain again uncontrolled pt would benefit from inpt rehab as documented neurosurgical note but insurance company had denies request will do peer to peer in am to review pts case and request special consideration given his
[2022-01-23 20:00] VITALS: PULSE 96; RESP 18; O2SAT 98
[2022-01-23] MEDS: LATANOPROST 0.005% OP SOLN 2.5 ML BTL 1 DROP EACH EYE (20:45)
[2022-01-23] MEDS: ROSUVASTATIN 10 MG TABLET PO (20:45)
[2022-01-23 22:00] VITALS: BP 113/76; PULSE 96; RESP 18; TEMP 36.8; O2SAT 98
[2022-01-23] MEDS: HYDROcodone/acetaminophen (*CRX) 5-325 MG TABLET 1 TAB PO (23:17)
[2022-01-24 05:07] VITALS: BP 129/78; PULSE 95; RESP 17; TEMP 36.8; O2SAT 96
[2022-01-24] MEDS: BACLOFEN 5 MG TABLET PO ×2 (05:19→16:07)
[2022-01-24 05:42] LABS: Basophils Percent Auto 0.2 % (0.2-1.2); Eosinophils Absolute Auto 0.1 K/mm3 (0-0.3); Eosinophils Percent Auto 1.7 % (0-4.4); Hematocrit 38.8 % (42.0-52.0); Hemoglobin 13.1 g/dL (14.0-18.0); Immature Granulocyte Absolute 0.03 K/mm3 (0.00-0.031); Immature Granulocyte Percent A 0.5 % (0-0.5); Lymphocytes Percent Auto 32.2 % (18.3-44.2); Mean Corpuscular HGB Conc 33.8 g/dl (32-36); Mean Corpuscular Hemoglobin 30.9 pg (26-34); Mean Corpuscular Volume 91.5 fl (80-100); Mean Platelet Volume 9.3 fl (7.4-10.4); Monocytes Absolute Auto 0.6 K/mm3 (0.1-0.6); Monocytes Percent Auto 8.9 % (2.6-8.5); Neutrophils Absolute Auto 3.7 K/mm3 (1.3-6.7); Neutrophils Percent Auto 56.5 % (45.5-73.1); Platelet Count Result 230 k/mm3 (150-375); Red Blood Count 4.24 M/mm3 (4.6-6.20); Red Cell Distribution Width 12.8 % (11.5-14.5); White Blood Count 6.5 K/mm3 (4.5-10.0)
[2022-01-24 06:06] LABS: Anion Gap 13 mmol/L (8-16); Blood Urea Nitrogen 17 mg/dL (9-20); Carbon Dioxide 26 mmol/L (22-30); Chloride 100 mmol/L (98-107); Estimated CRCL calculation 59 ml/min; Estimated Glomerular Filt Rate > 60; Glucose 96 mg/dL (65-110); Magnesium 2.2 mg/dL (1.6-2.3); Potassium 3.9 mmol/L (3.4-5.0); Sodium 139 mmol/L (137-145)
--- NOTE | 2022-01-24 08:32 | PM.DS ---
DS: Admitting Diagnosis Discharge Date 01/24/22 Admitting Diagnosis (1) Declining functional status: ?Code(s): R53.81 - Other malaise ?Status:?Acute (2) Weakness: ?Code(s): R53.1 - Weakness ?Status:?Acute (3) Lumbar compression fracture: ?Code(s): S32.000A - Wedge compression fracture of unspecified lumbar vertebra, initial encounter for closed fracture ?Status:?Acute (4) Anxiety and depression: ?Code(s): F41.9 - Anxiety disorder, unspecified; F32.A - Depression, unspecified ?Status:?Acute (5) Glaucoma: ?Code(s): H40.9 - Unspecified glaucoma ?Status:?Acute (6) Seizure disorder: ?Code(s): G40.909 - Epilepsy, unspecified, not intractable, without status epilepticus ?Status:?Acute ? (7) Depression: ?Code(s): F32.9 - Major depressive disorder, single episode, unspecified ?Status:?Acute (8) Prostate cancer: ?Code(s): C61 - Malignant neoplasm of prostate ?Status:?Acute (9) HTN (hypertension): ?Code(s): I10 - Essential (primary) hypertension ?Status:?Acute (10) Hyperlipidemia: ?Code(s): E78.5 - Hyperlipidemia, unspecified ?Status:?Acute DS: Discharge Diagnosis Discharge Diagnosis (1) Hyperlipidemia: Code(s): E78.5 - Hyperlipidemia, unspecified Status: Acute (2) HTN (hypertension): Code(s): I10 - Essential (primary) hypertension Status: Acute (3) Prostate cancer: Code(s): C61 - Malignant neoplasm of prostate Status: Acute (4) Depression: Code(s): F32.9 - Major depressive disorder, single episode, unspecified Status: Acute (5) Anxiety and depression: Code(s): F41.9 - Anxiety disorder, unspecified; F32.A - Depression, unspecified Status: Acute (6) Lumbar compression fracture: Code(s): S32.000A - Wedge compression fracture of unspecified lumbar vertebra, initial encounter for closed fracture Status: Acute (7) Low back pain: Code(s): M54.50 - Low back pain, unspecified Status: Acute (8) Falls: Code(s): W19.XXXA - Unspecified fall, initial encounter Status: Acute (9) Weakness: Code(s): R53.1 - Weakness Status: Acute (10) Declining functional status: Code(s): R53.81 - Other malaise Status: Acute (11) H/O: CVA (cerebrovascular accident): Code(s): Z86.73 - Personal history of transient ischemic attack (TIA), and cerebral infarction without residual deficits Status: Acute (12) Seizure disorder: Code(s): G40.909 - Epilepsy, unspecified, not intractable, without status epilepticus Status: Acute (13) Glaucoma: Code(s): H40.9 - Unspecified glaucoma Status: Acute (14) Occlusion and stenosis of left carotid artery: Code(s): I65.22 - Occlusion and stenosis of left carotid artery Status: Acute DS: Summary Hospital Course Reason for hospitalization: Chief Complaint: Neuro symptoms Narrative: This is 66-year-old male patient who has a history of hypertension, right-sided CVA with left-sided hemiparesis And a recent L2 compression fracture.? The patient stated that he has been seen by the rehab but neurological physician who sent him to the hospital.? The patient has increased weakness and inability to ambulate and decline in functional status over the last 3 weeks.? The patient has had a large right sided CVA with left side effect.? However he stated that his extremities her left upper and lower her wore weekend over the last 3 weeks.? He states that every time he tries to stand he falls over and that is how he sustained a lumbar fracture.? The patient is unable to ambulate independent and can no longer perform any ADLs other than feed himself.? [facility] The patient used to be ambulatory and used to be able to the perform his own ADLs but is no longer able to do that.? The patient's H&H
[2022-01-24] MEDS: MAGNESIUM OXIDE 400 MG TABLET PO (09:18)
[2022-01-24] MEDS: ASPIRIN 81 MG ENTERIC TABLET PO (09:18)
[2022-01-24] MEDS: levETIRAcetam 500 MG TABLET PO ×2 (09:18→16:07)
[2022-01-24] MEDS: CLOPIDOGREL BISULFATE 75 MG TABLET PO (09:18)
[2022-01-24] MEDS: CITALOPRAM HYDROBROMIDE 20 MG TABLET PO (09:18)
[2022-01-24] MEDS: TAMSULOSIN HCL 0.4 MG CAPSULE PO (09:18)
[2022-01-24 14:07] VITALS: BP 119/77; PULSE 93; RESP 12; TEMP 36.6; O2SAT 98
--- NOTE | 2022-01-24 14:57 | PCPTNOTE ---
Attempted to see patient, however RN advised not to see patient, patient is not wanting to move due to pain.
[2022-01-24] MEDS: HYDROcodone/acetaminophen (*CRX) 5-325 MG TABLET 1 TAB PO (16:07)
[2022-01-24 17:56] LABS: EDCOVIDSCREEN Negative (Negative)
[2022-01-24 19:37] VITALS: BP 117/72; PULSE 92; RESP 17; TEMP 36.1; O2SAT 96
== END 2022-01-24 20:10 ==
LOC: ANHED 14:07 → ANH2MED 16:44
PROVIDERS: Nurse Practitioner; Admitting Provider Family Medicine; Emergency Provider Emergency Medicine; PCP Emergency Medicine; Visit Provider Hospitalist
DX: R53.81 Other malaise (principal); R53.1 Weakness; S32.000A Wedge compression fracture of unspecified lumbar vertebra, initial encounter for closed fracture; W19.XXXA Unspecified fall, initial encounter; R29.6 Repeated falls; F41.9 Anxiety disorder, unspecified; F32.A Depression, unspecified; I69.354 Hemiplegia and hemiparesis following cerebral infarction affecting left non-dominant side; H40.9 Unspecified glaucoma; I10 Essential (primary) hypertension; C61 Malignant neoplasm of prostate; R90.82 White matter disease, unspecified; E78.5 Hyperlipidemia, unspecified; F10.90 Alcohol use, unspecified, uncomplicated; G40.909 Epilepsy, unspecified, not intractable, without status epilepticus; M62.82 Rhabdomyolysis; Z87.891 Personal history of nicotine dependence; Z80.1 Family history of malignant neoplasm of trachea, bronchus and lung; Z20.822 Contact with and (suspected) exposure to COVID-19; Z82.5 Family history of asthma and other chronic lower respiratory diseases; Z82.49 Family history of ischemic heart disease and other diseases of the circulatory system; I65.22 Occlusion and stenosis of left carotid artery; M47.816 Spondylosis without myelopathy or radiculopathy, lumbar region; M47.812 Spondylosis without myelopathy or radiculopathy, cervical region; M47.814 Spondylosis without myelopathy or radiculopathy, thoracic region; Z79.02 Long term (current) use of antithrombotics/antiplatelets; Z79.82 Long term (current) use of aspirin; Z79.1 Long term (current) use of non-steroidal anti-inflammatories (NSAID); Z79.899 Other long term (current) drug therapy
CPT/HCPCS: 36415; 51701; 70450; 70553; 71045; 72156; 72157; 72158; 80048; 80053; 80177; 81001; 82550; 83605; 83735; 84443; 84484; 85025; 85610; 85730; 87426; 93005; 96360; 97163; 97165; 99285; A9270; A9577; C9803; G0378; J7040

== ENCOUNTER 2022-10-17 08:14 | Outpatient (CLI) | payer MEDICARE, SELFPAY ==
--- NOTE | ~2022-10-17 | US_ITS ---
EXAMINATION: US arterial ankle brachial ind DATE: 10/17/2022 09:49 INDICATION: Peripheral vascular disease with claudication TECHNIQUE: Segmental pressures and plethysmographic and Doppler waveforms of the brachial and lower e xtremity arteries were obtained. COMPARISON: None. FINDINGS: Right and left brachial artery pressures of 121 mm Hg and 128 mm Hg, respectively, are concordant (no rmal difference <= 30 mmHg). The right ankle-brachial index (JESIKA) is 1.05 (normal >= 0.9-1.0). The right great toe-brachial index (TBI) is 0.45 (normal >= 0.65). Arterial Doppler waveforms are biphasic with brisk systolic upstrokes at both right posterior tibial and dorsalis pedis arteries. The left JESIKA is 1.12. The left TBI is 0.78. Arterial Doppler waveforms are biphasic with brisk systol ic upstrokes at both left posterior tibial and dorsalis pedis arteries. IMPRESSION: 1. Mild arterial occlusive disease to the right lower limb with normal right JESIKA but mildly decreased right TBI. 2. No significant arterial occlusive disease to left lower limb with normal left JESIKA and TBI Reviewed, dictated and finalized at location L. IMPRESSION: 1. Mild arterial occlusive disease to the right lower limb with normal right AB I but mildly decreased right TBI. 2. No significant arterial occlusive disease to left lower limb with normal lef t JESIKA and TBI
--- NOTE | ~2022-10-17 | US_ITS ---
EXAMINATION: US carotid duplex BI DATE: 10/17/2022 09:49 INDICATION: Carotid atherosclerosis and stenosis TECHNIQUE: Grayscale, color Doppler, and pulsed Doppler images of the cervical carotid arteries were obtained. The degree of vessel stenosis is placed in one of the following categories: normal, <50%, 5 0-69%, >=70% but less than near-occlusion, near-occlusion, or total occlusion. Note that percent sten osis relative to normal distal artery lumen diameter is indirectly measured from velocity measurement s as described by Wally, et al. Radiology 2003; [id number]. COMPARISON: None. FINDINGS: RIGHT: The right common carotid artery (CCA) peak systolic velocity (PSV) is 43 cm/s. The right internal car otid artery (ICA) is occluded with no evident arterial flow on color Doppler. The external carotid ar glenn (ECA) PSV is 45 cm/s. There is antegrade flow in the right vertebral artery. LEFT: The left CCA PSV is 124 cm/s. The left ICA PSV is 78 cm/s. The left ICA EDV is 33 cm/s. The left ICA/ CCA PSV ratio is 0.6. Grayscale and color Doppler images yield an estimate of <50% diameter reduction from plaque in the ICA. The ECA PSV is 58 cm/s. There is antegrade flow in the left vertebral artery . IMPRESSION: 1. Chronic occlusion of the right internal carotid artery. 2. <50% stenosis in the left internal carotid artery. Reviewed, dictated and finalized at location L.
== END 2022-10-17 08:15 | disposition home or self-care (01) ==
PROVIDERS: PCP Emergency Medicine
DX: R60.9 Edema, unspecified (principal); I73.9 Peripheral vascular disease, unspecified; I65.23 Occlusion and stenosis of bilateral carotid arteries
CPT/HCPCS: 93880; 93922